=== PATIENT | female | born 1935 | race Caucasian/White ===

== ENCOUNTER 2017-10-05 15:11 | Emergency (ER) | payer MEDICARE, MEDICAID ==
[2017-10-05 16:52] LABS: BASOPHILS 0.3 % (0-2); EOSINOPHILS 5.5 % (0-7); HEMATOCRIT 36.5 % (36.0-48.0); HEMOGLOBIN 12.3 g/dL (12-16); IMMATURE GRANULOCYTES 0.4 % (0-5); LYMPHOCYTES 29.6 % (15-50); MCH 28.1 pg (26.0-34.0); MCHC 33.7 g/dL (31.0-37.0); MCV 83.3 fL (80.0-100.0); MEAN PLATELET VOLUME 9.3 fL (7.4-10.4); NEUTROPHILS 50.2 % (40-80); PLATELET COUNT 287 10x3/uL (130-400); RBC 4.38 10x6/uL (4.00-5.40); RDW 13.5 % (11.5-14.5); WBC 7.9 10x3/uL (4.8-10.8)
[2017-10-05 17:07] LABS: ALBUMIN 3.1 g/dL (3.4-5.0); ANION GAP 14.6 mmol/L (8-16); BILIRUBIN - TOTAL 0.46 mg/dL (0.2-1.3); CALCIUM 9.5 mg/dL (8.5-10.1); CARBON DIOXIDE 27.3 mmol/L (21.0-32.0); CREATININE - SERUM 1.7 mg/dL (0.6-1.3); POTASSIUM - SERUM 3.9 mmol/L (3.5-5.1); PROTEIN - SERUM 8.1 g/dL (6.4-8.2)
== END 2017-10-05 18:45 | disposition home or self-care (01) ==
LOC: D.ER 15:11
PROVIDERS: Family Medicine
DX: E11.65 Type 2 diabetes mellitus with hyperglycemia (principal); Z79.4 Long term (current) use of insulin; I50.9 Heart failure, unspecified; I10 Essential (primary) hypertension; E03.9 Hypothyroidism, unspecified; K21.9 Gastro-esophageal reflux disease without esophagitis

== ENCOUNTER 2018-04-07 08:35 | Inpatient (IN) | payer MEDICARE, MEDICAID ==
[~2018-04-07] VITALS: Ht 170.2 cm; Wt 104.3 kg
--- NOTE | ~2018-04-07 | EC ---
PATIENT:INGRIS CONTRERAS DATE OF SERVICE: 04/07/18 SEX: F MEDICAL RECORD: [id number] DATE OF : 33 LOCATION:[facility] AGE OF PATIENT: 83 ADMISSION DATE: 04/07/18 REFERRING PHYSICIAN: INTERPRETING PHYSICIAN: KENTRELL MI MD ECHOCARDIOGRAM REPORT ECHO CHARGES 4 ECHO COMPLETE Date: 04/08/18 CLINICAL DIAGNOSIS: CHF ECHOCARDIOGRAPHIC MEASUREMENTS (adult normal given) AC root (d.<3.7cm) 2.8 cm LV Septum d (<1.2 cm> 1.8 cm Valve Excursion 1.5 cm LV Septum (systole) 2.0 cm Left Atria (s.<4.0cm> 3.2 cm LVPW d(<1.2cm) 1.7 cm RV (d.<2.3cm) 4.6 cm LVPW (sytole) 2.1 cm LV diastole(<5.6CM) 4.8 cm MV E-F(>70mm/sec) cm LV systole 3.2 cm LVOT Diameter 1.7 cm MV exc.(>10mm) 1.9 cm Est.ejection fraction (50-75%) % DOPPLER: LVIT cm/sec A 111 cm/sec E 93.0 cm/sec LA cm/sec RVSP 35 mmHg LVOT 110 cm/sec AOP1/2T m/s Asc. Ao 189 cm/sec RVOT 114 cm/sec RA cm/sec PA 134 cm/sec AV Gradient Peak 14.26mmHg AV Mean 6.51 mmHg AV Area 1.4 cm MV Gradient Peak 5.20 mmHg MV Mean 2.49 mmHg MV Area cm COMMENTS: Corporate Travel Coordinator: Miles MOY Clam Grader: 3 Dr. Abdi TAPE# PACS Pericardial Effusion N DATE OF SERVICE: 04/08/2018 ECHOCARDIOGRAM FINDINGS: 1. Left ventricular chamber size is within normal limits. Left ventricular systolic function is normal. Overall ejection fraction estimated at 60%. 2. Left atrium, right atrium, and right ventricle chamber sizes are within normal limits. 3. Valvular structures have normal structure and motion. ECHOCARDIOGRAM REPORT [id number] INGRIS CONTRERAS 4. Doppler interrogation only reveals mild tricuspid regurgitation, no other valvular insufficiency or stenosis. Pulmonary systolic pressure is estimated 35 mmHg. 5. No evidence of pericardial effusion or left ventricular thrombus. TRANSINT:[id number] Voice Confirmation ID: [id number] DOCUMENT ID: [id number] KENTRELL MI MD at 1950 CC: [id number] DICTATION DATE: 04/08/18 1107 MATERIAL HANDLER FLOORPERSON: 04/08/18 1119 ADM IN [facility] [address] [place] [address]
[2018-04-07] MEDS ORDERED: BP MED (08:41)
[2018-04-07] MEDS ORDERED: GLUCOPHAGE500 MG PO (08:41)
[2018-04-07] MEDS ORDERED: HUMULIN R100 U/ML SC (08:41)
[2018-04-07] MEDS ORDERED: [UNRECOGNIZED DRUG - REMARK] (08:42)
[2018-04-07] MEDS ORDERED: [UNRECOGNIZED DRUG - REMARK] (08:42)
[2018-04-07 10:24] LABS: BASOPHILS 0.2 % (0-2); EOSINOPHILS 2.6 % (0-7); HEMATOCRIT 35.3 % (36.0-48.0); HEMOGLOBIN 11.9 g/dL (12-16); IMMATURE GRANULOCYTES 0.7 % (0-5); LYMPHOCYTES 14.5 % (15-50); MCH 27.7 pg (26.0-34.0); MCHC 33.7 g/dL (31.0-37.0); MCV 82.1 fL (80.0-100.0); MEAN PLATELET VOLUME 8.9 fL (7.4-10.4); MONOCYTES 8.6 % (2-11); NEUTROPHILS 73.4 % (40-80); PLATELET COUNT 256 10x3/uL (130-400); RDW 13.9 % (11.5-14.5); WBC 11.9 10x3/uL (4.8-10.8)
[2018-04-07 10:31] LABS: APTT 22.6 SECONDS (22.8-39.4)
[2018-04-07 10:32] LABS: INR 1.01 (0.85-1.17); PROTIME 12.9 SECONDS (11.6-15.0)
[2018-04-07 10:37] LABS: ALBUMIN 2.7 g/dL (3.4-5.0); ANION GAP 11.2 mmol/L (8-16); BILIRUBIN - TOTAL 0.39 mg/dL (0.2-1.3); CALCIUM 8.4 mg/dL (8.5-10.1); CARBON DIOXIDE 28.6 mmol/L (21.0-32.0); CREATININE - SERUM 1.7 mg/dL (0.6-1.3); POTASSIUM - SERUM 3.8 mmol/L (3.5-5.1); PROTEIN - SERUM 7.4 g/dL (6.4-8.2)
[2018-04-07 13:59] LABS: % SATURATION 19 % (15-55); IRON 54 ug/dl (35-150); TOTAL IRON BIND CAPACITY 271 ug/dl (260-445); UNSAT IRON BIND CAPACITY 217 ug/dl (150-375)
[2018-04-07 14:12] LABS: FERRITIN 110 ng/mL (3-244); PRO BNP 488 pg/mL (0-450)
[2018-04-07 14:18] VITALS: BP 176/66
[2018-04-07 14:36] VITALS: BP 176/66; BMI 36.1
[2018-04-07 14:49] LABS: BASOPHILS 0.1 % (0-2); HEMATOCRIT 34.6 % (36.0-48.0); HEMOGLOBIN 11.3 g/dL (12-16); IMMATURE GRANULOCYTES 0.8 % (0-5); LYMPHOCYTES 19.1 % (15-50); MCH 27.3 pg (26.0-34.0); MCHC 32.7 g/dL (31.0-37.0); MCV 83.6 fL (80.0-100.0); MEAN PLATELET VOLUME 8.9 fL (7.4-10.4); MONOCYTES 11.8 % (2-11); NEUTROPHILS 66.2 % (40-80); PLATELET COUNT 248 10x3/uL (130-400); RBC 4.14 10x6/uL (4.00-5.40); RDW 14.1 % (11.5-14.5); WBC 10.5 10x3/uL (4.8-10.8)
[2018-04-07 15:01] LABS: ANION GAP 10.2 mmol/L (8-16); CARBON DIOXIDE 27.5 mmol/L (21.0-32.0); CREATININE - SERUM 1.6 mg/dL (0.6-1.3); POTASSIUM - SERUM 3.7 mmol/L (3.5-5.1)
[2018-04-07] MEDS ORDERED: JANUVIA50 MG PO (18:15)
[2018-04-07] MEDS ORDERED: SYNTHROID100 MCG PO (18:16)
[2018-04-07] MEDS ORDERED: NEURONTIN600 MG PO (18:16)
[2018-04-07] MEDS ORDERED: COREG6.25 MG PO (18:17)
[2018-04-07] MEDS ORDERED: FUROSEMIDE20 MG PO (18:19)
[2018-04-07] MEDS ORDERED: ZOCOR20 MG PO (18:19)
[2018-04-07] MEDS ORDERED: LEVEMIR100 U/M1 SQ ×2 (18:21→18:22)
[2018-04-07] MEDS ORDERED: FLUTICASONE PRO16 GM NASAL (18:23)
[2018-04-07] MEDS ORDERED: SPIRIVA18 MCG INH (18:27)
[2018-04-07 18:34] VITALS: BP 154/80
[2018-04-07 20:00] VITALS: BP 178/47
[2018-04-08 04:08] VITALS: BP 163/40
[2018-04-08 05:06] LABS: BASOPHILS 0.1 % (0-2); EOSINOPHILS 1.1 % (0-7); HEMATOCRIT 32.4 % (36.0-48.0); HEMOGLOBIN 10.7 g/dL (12-16); IMMATURE GRANULOCYTES 0.5 % (0-5); LYMPHOCYTES 15.5 % (15-50); MCH 27.3 pg (26.0-34.0); MCV 82.7 fL (80.0-100.0); MONOCYTES 12.9 % (2-11); NEUTROPHILS 69.9 % (40-80); PLATELET COUNT 250 10x3/uL (130-400); RBC 3.92 10x6/uL (4.00-5.40); RDW 14.1 % (11.5-14.5)
[2018-04-08 05:26] LABS: ANION GAP 11.8 mmol/L (8-16); CALCIUM 7.7 mg/dL (8.5-10.1); CARBON DIOXIDE 26.4 mmol/L (21.0-32.0); CREATININE - SERUM 1.6 mg/dL (0.6-1.3); POTASSIUM - SERUM 4.2 mmol/L (3.5-5.1)
[2018-04-08 09:49] VITALS: BP 106/80
[2018-04-08 12:45] VITALS: BP 160/72
[2018-04-08 16:40] VITALS: BP 171/80
[2018-04-08 20:35] VITALS: BP 164/68
[2018-04-09 03:43] VITALS: BP 169/69
[2018-04-09 07:49] LABS: BASOPHILS 0.1 % (0-2); EOSINOPHILS 0.5 % (0-7); HEMATOCRIT 31.6 % (36.0-48.0); HEMOGLOBIN 10.4 g/dL (12-16); IMMATURE GRANULOCYTES 0.5 % (0-5); LYMPHOCYTES 11.8 % (15-50); MCH 27.2 pg (26.0-34.0); MCHC 32.9 g/dL (31.0-37.0); MCV 82.7 fL (80.0-100.0); MEAN PLATELET VOLUME 9.3 fL (7.4-10.4); MONOCYTES 12.4 % (2-11); NEUTROPHILS 74.7 % (40-80); PLATELET COUNT 242 10x3/uL (130-400); RBC 3.82 10x6/uL (4.00-5.40); RDW 13.9 % (11.5-14.5); WBC 9.6 10x3/uL (4.8-10.8)
[2018-04-09 08:18] LABS: FOLATE (FOLIC ACID) - SERUM 10.5 ng/mL (>3.0)
[2018-04-09 08:22] LABS: ANION GAP 10.7 mmol/L (8-16); CALCIUM 7.8 mg/dL (8.5-10.1); CARBON DIOXIDE 25.5 mmol/L (21.0-32.0); CREATININE - SERUM 1.6 mg/dL (0.6-1.3); POTASSIUM - SERUM 4.2 mmol/L (3.5-5.1)
[2018-04-09 08:50] VITALS: BP 160/49
[2018-04-09 12:51] VITALS: BP 175/59
[2018-04-09 17:36] VITALS: BP 156/79
[2018-04-09 20:00] VITALS: BP 109/47
[2018-04-10 04:08] VITALS: BP 123/60
[2018-04-10 06:17] LABS: ANION GAP 8.4 mmol/L (8-16); CARBON DIOXIDE 26.7 mmol/L (21.0-32.0); CREATININE - SERUM 1.6 mg/dL (0.6-1.3); POTASSIUM - SERUM 4.1 mmol/L (3.5-5.1)
[2018-04-10 06:56] LABS: BASOPHILS 0.1 % (0-2); EOSINOPHILS 2.5 % (0-7); HEMATOCRIT 28.4 % (36.0-48.0); HEMOGLOBIN 9.5 g/dL (12-16); IMMATURE GRANULOCYTES 0.5 % (0-5); LYMPHOCYTES 17.6 % (15-50); MCH 27.6 pg (26.0-34.0); MCHC 33.5 g/dL (31.0-37.0); MCV 82.6 fL (80.0-100.0); MEAN PLATELET VOLUME 9.3 fL (7.4-10.4); MONOCYTES 14.3 % (2-11); PLATELET COUNT 241 10x3/uL (130-400); RBC 3.44 10x6/uL (4.00-5.40); WBC 7.6 10x3/uL (4.8-10.8)
[2018-04-10 09:03] VITALS: BP 172/71
[2018-04-10 13:16] VITALS: BP 123/61
[2018-04-10 15:14] VITALS: Ht 170.2 cm; Wt 104.3 kg
[2018-04-10 16:42] VITALS: BP 146/56; BP 96/74
[2018-04-10 19:59] VITALS: BP 141/58
[2018-04-11 04:00] VITALS: BP 144/60
[2018-04-11 06:03] LABS: HEMATOCRIT 30.1 % (36.0-48.0); HEMOGLOBIN 10.3 g/dL (12-16); LYMPHOCYTES 20.9 % (15-50); MCH 27.8 pg (26.0-34.0); MCHC 34.2 g/dL (31.0-37.0); MCV 81.1 fL (80.0-100.0); MEAN PLATELET VOLUME 8.8 fL (7.4-10.4); NEUTROPHILS 65.6 % (40-80); PLATELET COUNT 264 10x3/uL (130-400); RBC 3.71 10x6/uL (4.00-5.40); RDW 13.5 % (11.5-14.5); WBC 6.9 10x3/uL (4.8-10.8)
[2018-04-11 06:09] LABS: ANION GAP 10.7 mmol/L (8-16); CALCIUM 8.1 mg/dL (8.5-10.1); CARBON DIOXIDE 27.5 mmol/L (21.0-32.0); POTASSIUM - SERUM 4.2 mmol/L (3.5-5.1)
[2018-04-11 08:34] VITALS: BP 148/57
[2018-04-11 13:01] VITALS: BP 128/56
[2018-04-11 16:40] VITALS: BP 141/40
[2018-04-11 20:00] VITALS: BP 110/65
[2018-04-12] VITALS (7 sets, daily range): BP systolic 122–170; BP diastolic 49–81
[2018-04-12 05:28] LABS: BASOPHILS 0.3 % (0-2); EOSINOPHILS 5.1 % (0-7); HEMATOCRIT 30.8 % (36.0-48.0); HEMOGLOBIN 10.3 g/dL (12-16); IMMATURE GRANULOCYTES 0.7 % (0-5); LYMPHOCYTES 21.6 % (15-50); MCH 27.4 pg (26.0-34.0); MCHC 33.4 g/dL (31.0-37.0); MCV 81.9 fL (80.0-100.0); MEAN PLATELET VOLUME 9.2 fL (7.4-10.4); MONOCYTES 14.3 % (2-11); PLATELET COUNT 248 10x3/uL (130-400); RBC 3.76 10x6/uL (4.00-5.40); RDW 13.9 % (11.5-14.5); WBC 7.5 10x3/uL (4.8-10.8)
[2018-04-12 05:51] LABS: ANION GAP 12.1 mmol/L (8-16); CALCIUM 8.1 mg/dL (8.5-10.1); CARBON DIOXIDE 25.1 mmol/L (21.0-32.0); POTASSIUM - SERUM 4.2 mmol/L (3.5-5.1)
[2018-04-13 04:00] VITALS: BP 153/55
[2018-04-13 06:24] LABS: BASOPHILS 0.3 % (0-2); EOSINOPHILS 5.6 % (0-7); HEMATOCRIT 30.1 % (36.0-48.0); HEMOGLOBIN 10.2 g/dL (12-16); IMMATURE GRANULOCYTES 0.6 % (0-5); MCH 27.6 pg (26.0-34.0); MCHC 33.9 g/dL (31.0-37.0); MCV 81.4 fL (80.0-100.0); MEAN PLATELET VOLUME 9.2 fL (7.4-10.4); NEUTROPHILS 53.5 % (40-80); PLATELET COUNT 292 10x3/uL (130-400); RDW 13.8 % (11.5-14.5); WBC 6.6 10x3/uL (4.8-10.8)
[2018-04-13 06:56] LABS: ANION GAP 11.5 mmol/L (8-16); BILIRUBIN - TOTAL 0.28 mg/dL (0.2-1.3); POTASSIUM - SERUM 4.5 mmol/L (3.5-5.1)
[2018-04-13 10:10] VITALS: BP 149/49
[2018-04-13 10:18] VITALS: BP 149/49
[2018-04-13 15:04] VITALS: BP 137/54
[2018-04-13 20:23] VITALS: BP 131/42
[2018-04-14 04:18] VITALS: BP 132/56
[2018-04-14 05:35] LABS: BASOPHILS 0.4 % (0-2); EOSINOPHILS 6.6 % (0-7); HEMATOCRIT 29.6 % (36.0-48.0); HEMOGLOBIN 9.8 g/dL (12-16); IMMATURE GRANULOCYTES 0.9 % (0-5); LYMPHOCYTES 28.5 % (15-50); MCH 27.1 pg (26.0-34.0); MCHC 33.1 g/dL (31.0-37.0); MCV 81.8 fL (80.0-100.0); MONOCYTES 11.9 % (2-11); NEUTROPHILS 51.7 % (40-80); PLATELET COUNT 321 10x3/uL (130-400); RBC 3.62 10x6/uL (4.00-5.40); RDW 13.8 % (11.5-14.5); WBC 7.4 10x3/uL (4.8-10.8)
[2018-04-14 05:56] LABS: ALBUMIN 2.1 g/dL (3.4-5.0); ANION GAP 11.9 mmol/L (8-16); BILIRUBIN - TOTAL 0.27 mg/dL (0.2-1.3); CALCIUM 8.2 mg/dL (8.5-10.1); CARBON DIOXIDE 25.4 mmol/L (21.0-32.0); POTASSIUM - SERUM 4.3 mmol/L (3.5-5.1); PROTEIN - SERUM 6.7 g/dL (6.4-8.2)
[2018-04-14 08:20] VITALS: BP 151/79
[2018-04-14] MEDS ORDERED: BREO ELLIPTA 11 EACH INH (11:04)
[2018-04-14 11:53] VITALS: BP 127/56
== END 2018-04-14 18:32 | DRG 493 ==
LOC: D.ER 08:35 → D.MS 11:08 → D.SDCHOLD 11:08 → D.MS 13:17 → D.SDCHOLD 16:41 → D.MS 16:45
PROVIDERS: Emergency Medicine; Family Medicine; Internal Medicine Nephrology; Orthopaedic Surgery
PROC: 0QSG04Z Reposition Right Tibia with Internal Fixation Device, Open Approach (ICD-10-PCS; 2018-04-07)
PROC: 0QSJ04Z Reposition Right Fibula with Internal Fixation Device, Open Approach (ICD-10-PCS; principal; 2018-04-07 11:41)
DX: S82.841A Displaced bimalleolar fracture of right lower leg, initial encounter for closed fracture (principal); N17.9 Acute kidney failure, unspecified; W19.XXXA Unspecified fall, initial encounter; J44.9 Chronic obstructive pulmonary disease, unspecified; I12.9 Hypertensive chronic kidney disease with stage 1 through stage 4 chronic kidney disease, or unspecified chronic kidney disease; E11.22 Type 2 diabetes mellitus with diabetic chronic kidney disease; N18.9 Chronic kidney disease, unspecified; M35.3 Polymyalgia rheumatica; E78.5 Hyperlipidemia, unspecified; D64.9 Anemia, unspecified

== ENCOUNTER → 2019-11-26 12:40 | Outpatient (CLI) | payer MEDICARE, MEDICAID ==
[2018-04-10 15:14] VITALS: BMI 36.0
[~2019-11-26 12:40] MED LIST: BP MED; BREO ELLIPTA 11 EACH INH; COREG6.25 MG PO; FLUTICASONE PRO16 GM NASAL; FUROSEMIDE20 MG PO; GLUCOPHAGE500 MG PO; HUMULIN R100 U/ML SC; JANUVIA50 MG PO; LEVEMIR100 U/M1 SQ; NEURONTIN600 MG PO; SPIRIVA18 MCG INH; SYNTHROID100 MCG PO; ZOCOR20 MG PO; [UNRECOGNIZED DRUG - REMARK]; [UNRECOGNIZED DRUG - REMARK]
[2019-11-26 17:35] LABS: BACTERIA FEW /hpf (NEGATIVE); BILIRUBIN NEGATIVE (NEGATIVE); EPITHELIAL CELLS NSEEN /hpf (0-5); GLUCOSE 100 mg/dL (NEGATIVE); KETONE NEGATIVE (NEGATIVE); NITRITE NEGATIVE (NEGATIVE); RED CELLS - URINE 0-5 /hpf (0-5); SPECIFIC GRAVITY 1.015 (1.005-1.020); UROBILINOGEN NORMAL (NORMAL); WHITE CELLS - URINE 0-5 /hpf (NEGATIVE)
== END | disposition home or self-care (01) ==
LOC: D.LABREF 12:40
PROVIDERS: ATTEND Family Medicine
DX: R41.0 Disorientation, unspecified (principal); E11.65 Type 2 diabetes mellitus with hyperglycemia; N18.4 Chronic kidney disease, stage 4 (severe); R35.0 Frequency of micturition

== ENCOUNTER → 2020-04-25 18:50 | Outpatient (CLI) | payer MEDICARE, MEDICAID ==
[2018-04-10 15:14] VITALS: BMI 36.0
== END | disposition home or self-care (01) ==
LOC: D.LAB 18:50
PROVIDERS: ATTEND Family Medicine
DX: E11.65 Type 2 diabetes mellitus with hyperglycemia (principal); I11.0 Hypertensive heart disease with heart failure; I50.9 Heart failure, unspecified; N18.4 Chronic kidney disease, stage 4 (severe)

== ENCOUNTER → 2020-04-25 19:58 | Outpatient (CLI) | payer MEDICARE, MEDICAID ==
[2018-04-10 15:14] VITALS: BMI 36.0
[2020-04-25 20:45] LABS: BASOPHILS 0.4 % (0-2); EOSINOPHILS 5.3 % (0-7); HEMATOCRIT 36.7 % (36.0-48.0); HEMOGLOBIN 11.9 g/dL (12-16); IMMATURE GRANULOCYTES 0.4 % (0-5); MCH 27.7 pg (26.0-34.0); MCHC 32.4 g/dL (31.0-37.0); MCV 85.5 fL (80.0-100.0); MEAN PLATELET VOLUME 9.4 fL (7.4-10.4); MONOCYTES 12.7 % (2-11); NEUTROPHILS 55.2 % (40-80); PLATELET COUNT 295 10x3/uL (130-400); RBC 4.29 10x6/uL (4.00-5.40); RDW 14.3 % (11.5-14.5); WBC 7.9 10x3/uL (4.8-10.8)
[2020-04-25 21:10] LABS: ALBUMIN 2.7 g/dL (3.4-5.0); BILIRUBIN - TOTAL 0.23 mg/dL (0.2-1.3); CALCIUM 8.4 mg/dL (8.5-10.1); CARBON DIOXIDE 23.5 mmol/L (21.0-32.0); CREATININE - SERUM 1.9 mg/dL (0.6-1.3); POTASSIUM - SERUM 4.5 mmol/L (3.5-5.1); PROTEIN - SERUM 7.3 g/dL (6.4-8.2)
[2020-04-25 22:39] LABS: BILIRUBIN NEGATIVE (NEGATIVE); KETONE NEGATIVE (NEGATIVE); NITRITE NEGATIVE (NEGATIVE); UROBILINOGEN NORMAL mg/dL (< 2)
[2020-04-25 22:40] LABS: EPITHELIAL CELLS 0-5 /hpf (0-5)
[2020-04-25 22:41] LABS: BACTERIA FEW HPF (NONE SEEN)
== END | disposition home or self-care (01) ==
LOC: D.LABREF 19:58
PROVIDERS: ATTEND Family Medicine
DX: E11.65 Type 2 diabetes mellitus with hyperglycemia (principal); I50.9 Heart failure, unspecified; I11.0 Hypertensive heart disease with heart failure; N18.4 Chronic kidney disease, stage 4 (severe)

== ENCOUNTER 2020-10-25 17:54 | Inpatient (IN) | payer MEDICARE, MEDICAID ==
[~2020-10-25] VITALS: Ht 170.2 cm; Wt 113.2 kg
[2020-10-25] MEDS ORDERED: NORVASC5 MG PO (18:03)
[2020-10-25] MEDS ORDERED: ALDACTONE25 MG (18:03)
[2020-10-25] MEDS ORDERED: K-DUR20 MEQ PO (18:03)
[2020-10-25] MEDS ORDERED: HYDRALAZINE HCL25 MG (18:04)
[2020-10-25] MEDS ORDERED: COLACE100 MG (18:04)
[2020-10-25] MEDS ORDERED: PROTONIX40 MG PO (18:04)
[2020-10-25 19:00] LABS: BASOPHILS 0.4 % (0-2); EOSINOPHILS 10.2 % (0-7); HEMATOCRIT 34.3 % (36.0-48.0); HEMOGLOBIN 10.8 g/dL (12-16); IMMATURE GRANULOCYTES 0.7 % (0-5); LYMPHOCYTE ABS# 2.12 10x3/uL (1.18-3.74); LYMPHOCYTES 30.5 % (15-50); MCH 26.2 pg (26.0-34.0); MCHC 31.5 g/dL (31.0-37.0); MCV 83.1 fL (80.0-100.0); MEAN PLATELET VOLUME 8.7 fL (7.4-10.4); MONOCYTES 18.7 % (2-11); NEUTROPHIL ABS# 2.74 10x3/uL (1.56-6.13); NEUTROPHILS 39.5 % (40-80); PLATELET COUNT 244 10x3/uL (130-400); RBC 4.13 10x6/uL (4.00-5.40); RDW 16.1 % (11.5-14.5)
[2020-10-25 19:06] LABS: CALC OSMOLALITY 281 mosm/kg (275-300); CALCIUM 8.8 mg/dL (8.5-10.1); CARBON DIOXIDE 23.7 mmol/L (21.0-32.0); CHLORIDE - SERUM 104 mmol/L (98-107); CREATININE - SERUM 2.2 mg/dL (0.6-1.3); POTASSIUM - SERUM 4.8 mmol/L (3.5-5.1); SODIUM 137 mmol/L (136-145); UREA NITROGEN 27 mg/dL (7-18); eGFR NON AFRICAN AMERICAN 22 mL/min (90-120)
[2020-10-25 19:08] LABS: GLUCOSE 155 mg/dL (74-106)
[2020-10-25 19:12] LABS: INR 1.13 (0.85-1.17); PROTIME 13.5 SECONDS (11.6-15.0)
[2020-10-25 19:19] LABS: ALBUMIN 2.7 g/dL (3.4-5.0); ALKALINE PHOSPHATASE 67 U/L (30-120); ALT (SGPT) 15 U/L (10-68); BILIRUBIN - TOTAL 0.25 mg/dL (0.2-1.3); PRO BNP 1016 pg/mL (0-450); PROTEIN - SERUM 7.4 g/dL (6.4-8.2)
[2020-10-25 19:28] LABS: TROPONIN-I < 0.017 ng/mL (0.000-0.060)
[2020-10-25 19:31] VITALS: BP 167/64
[2020-10-25 19:58] LABS: BILIRUBIN NEGATIVE (NEGATIVE); KETONE NEGATIVE (NEGATIVE); NITRITE NEGATIVE (NEGATIVE); UROBILINOGEN NORMAL mg/dL (< 2)
[2020-10-25 20:00] LABS: BACTERIA MANY HPF (NONE SEEN); SQUAMOUS EPITHELIAL 0-5 HPF (0-4)
[2020-10-25 20:34] VITALS: BP 158/72
--- NOTE | 2020-10-25 21:00 | NUR ---
PT ASSISTED WITH BEDPAN. LARGE LOOSE BROWN BM. HIRA CARE PROVIDED, BED LINEN CHANGED AND PUREWICK PLACED ON PT. PT TOLERATED WELL. CALL LIGHT IN REACH.
[2020-10-25 21:30] VITALS: BP 147/82
--- NOTE | 2020-10-25 23:01 | NUR ---
PT FROM ER VIA STRETCHER, PT TO BED, AAO X 3, RESP EVEN AND UNLABORED,NO DISTRESS NOTED, CL IN REACH, SR UP X 2.
[2020-10-26 01:45] VITALS: BP 165/66
[2020-10-26 01:46] VITALS: BP 157/68
[2020-10-26 02:52] LABS: BASOPHILS 0.2 % (0-2); EOSINOPHILS 1.3 % (0-7); HEMATOCRIT 36.1 % (36.0-48.0); HEMOGLOBIN 11.5 g/dL (12-16); IMMATURE GRANULOCYTES 0.5 % (0-5); LYMPHOCYTE ABS# 1.21 10x3/uL (1.18-3.74); LYMPHOCYTES 12.9 % (15-50); MCH 26.5 pg (26.0-34.0); MCHC 31.9 g/dL (31.0-37.0); MCV 83.2 fL (80.0-100.0); MEAN PLATELET VOLUME 8.5 fL (7.4-10.4); MONOCYTES 4.3 % (2-11); NEUTROPHIL ABS# 7.58 10x3/uL (1.56-6.13); NEUTROPHILS 80.8 % (40-80); PLATELET COUNT 273 10x3/uL (130-400); RBC 4.34 10x6/uL (4.00-5.40); RDW 15.8 % (11.5-14.5)
[2020-10-26 02:56] LABS: WBC 9.4 10x3/uL (4.8-10.8)
[2020-10-26 03:10] LABS: % SATURATION 21 % (15-55); IRON 46 ug/dl (35-150); TOTAL IRON BIND CAPACITY 210 ug/dl (260-445); UNSAT IRON BIND CAPACITY 164 ug/dl (150-375)
[2020-10-26 03:40] LABS: ALBUMIN 2.5 g/dL (3.4-5.0); ALKALINE PHOSPHATASE 68 U/L (30-120); ALT (SGPT) 13 U/L (10-68); BILIRUBIN - TOTAL 0.29 mg/dL (0.2-1.3); CALC OSMOLALITY 283 mosm/kg (275-300); CALCIUM 8.6 mg/dL (8.5-10.1); CARBON DIOXIDE 25.5 mmol/L (21.0-32.0); CHLORIDE - SERUM 105 mmol/L (98-107); CKMB 0.6 U/L (0.0-3.6); CREATINE KINASE 36 UL (21-215); CREATININE - SERUM 2.1 mg/dL (0.6-1.3); FERRITIN 141 ng/mL (3-244); GLUCOSE 167 mg/dL (74-106); MAGNESIUM - SERUM 1.8 mg/dL (1.8-2.4); POTASSIUM - SERUM 4.9 mmol/L (3.5-5.1); PROTEIN - SERUM 7.4 g/dL (6.4-8.2); SODIUM 138 mmol/L (136-145); UREA NITROGEN 23 mg/dL (7-18); eGFR NON AFRICAN AMERICAN 24 mL/min (90-120)
[2020-10-26 03:41] LABS: TROPONIN-I < 0.017 ng/mL (0.000-0.060)
[2020-10-26 05:11] VITALS: BMI 39.1
[2020-10-26 05:40] VITALS: BP 115/74
--- NOTE | 2020-10-26 07:21 | NUR ---
SPOKE WITH PT SON AT THIS TIME REGARDING PT TREATMENT PLAN AND CONDITION.
[2020-10-26 07:54] VITALS: BP 155/63
[2020-10-26 08:06] LABS: CKMB 1.2 U/L (0.0-3.6); CREATINE KINASE 36 UL (21-215); TROPONIN-I < 0.017 ng/mL (0.000-0.060)
--- NOTE | 2020-10-26 08:31 | NUR ---
PT GIVEN AM MEDS PER EMAR. PT ASSISTED TO REPOSITION IN BED FOR BREAKFAST. RR EVEN NON LABORED. PRODUCTIVE COUGH NOTED. PT AAOX3. PLEASANT. PAIN STATED TO BACK. PT DENIES WANTING PRN PAIN MEDICATION AT THIS TIME. NO NEEDS VOICED. CLWR.
--- NOTE | 2020-10-26 09:47 | NUR ---
SKIN BREAKDOWN NOTED TO BUTTOCKS. BARRIER CREAM APPLIED.
[2020-10-26 10:04] VITALS: BMI 39.1
[2020-10-26 10:40] VITALS: Ht 170.2 cm; Wt 113.2 kg
--- NOTE | 2020-10-26 11:10 | NUR ---
MEDS GIVEN. PT ASSISTED WITH TV. PHONE SARAY FIXED IN ROOM PER TECH. NO NEEDS VOICED. CLWR .
[2020-10-26 11:32] VITALS: BP 166/66
[2020-10-26 14:43] LABS: CKMB 0.7 U/L (0.0-3.6); CREATINE KINASE 37 UL (21-215)
[2020-10-26 14:46] LABS: TROPONIN-I < 0.017 ng/mL (0.000-0.060)
[2020-10-26 15:59] VITALS: BP 169/58
--- NOTE | 2020-10-26 20:18 | NUR ---
PT A/O X4. PT VOMITING UNCONTROLABLY. PRN ZOFRAN GIVEN. RR E/U. VSS. TELE-88. BED LOW CALL LIGHT WITHIN REACH. WILL CONTINUE TO MONITOR.
--- NOTE | 2020-10-26 20:20 | NUR ---
PT STOPPED VOMITING AT THIS TIME.
--- NOTE | 2020-10-26 21:10 | NUR ---
SWALLOW STUDY ORDERED PER SHAILA ESCOBAR.
[2020-10-27 01:08] VITALS: BP 133/74
--- NOTE | 2020-10-27 02:25 | NUR ---
I have reviewed this patient and I concur with the Shift Assessment completed by the Licensed Practical Nurse today this shift.
[2020-10-27 05:33] VITALS: BP 144/72
[2020-10-27 05:47] LABS: BASOPHILS 0.3 % (0-2); EOSINOPHILS 0 % (0-7); HEMATOCRIT 32.1 % (36.0-48.0); HEMOGLOBIN 10.2 g/dL (12-16); IMMATURE GRANULOCYTES 0.7 % (0-5); LYMPHOCYTES 14.7 % (15-50); MCH 26.3 pg (26.0-34.0); MCHC 31.8 g/dL (31.0-37.0); MCV 82.7 fL (80.0-100.0); MEAN PLATELET VOLUME 9.1 fL (7.4-10.4); MONOCYTES 13.1 % (2-11); NEUTROPHIL ABS# 5.32 10x3/uL (1.56-6.13); NEUTROPHILS 71.2 % (40-80); PLATELET COUNT 284 10x3/uL (130-400); RBC 3.88 10x6/uL (4.00-5.40); RDW 15.8 % (11.5-14.5); WBC 7.5 10x3/uL (4.8-10.8)
--- NOTE | 2020-10-27 05:59 | NUR ---
PT RESTING COMFORTABLY AT THIS TIME. RR E/U. VSS. TELE-64. PT HAS BEEN NPO SINCE MIDNIGHT PENDING CARDIOLOGY CONSULT. PT IS SCEDULED STRESS TEST W/ DR. ESPINAL OFFICE THIS AM.
[2020-10-27 06:09] LABS: ALBUMIN 2.3 g/dL (3.4-5.0); ANION GAP 13.1 mmol/L (8-16); BILIRUBIN - TOTAL 0.19 mg/dL (0.2-1.3); CALCIUM 8.4 mg/dL (8.5-10.1); CARBON DIOXIDE 24.7 mmol/L (21.0-32.0); CREATININE - SERUM 2.1 mg/dL (0.6-1.3); MAGNESIUM - SERUM 1.7 mg/dL (1.8-2.4); POTASSIUM - SERUM 4.8 mmol/L (3.5-5.1); PROTEIN - SERUM 6.6 g/dL (6.4-8.2)
--- NOTE | 2020-10-27 07:10 | NUR ---
Lying in bed, awake/alert/oriented x 3, t/r self ad alex with assist, has purewick filter draining clear yellow urine to cdb in ample amt, cath care provided with daily bath and prn, using catheter to keep periarea clean/dry, incont of bowel with use of incont pads ad alex, pericare provided with daily bath and prn, denies pain/other discomfort at this time, call light/phone/water within reach, no s/s of acute distress observed.
[2020-10-27 08:18] VITALS: BP 151/68
[2020-10-27 11:46] VITALS: BP 157/62
[2020-10-27 16:11] VITALS: BP 159/64
[2020-10-27 20:00] VITALS: BP 139/63
--- NOTE | 2020-10-27 22:00 | NUR ---
IV RESITED TO LEFT HAND
--- NOTE | 2020-10-27 23:55 | NUR ---
LINENS AND GOWN CHANGES. BARRIER CREAM APPLIED. LOTION TO BACK AND HIPS APPLIED. NEW PUREWICK APPLIED. PATIENT DENEIS ANY OTHER NEEDS OR CONCERNS.
[2020-10-28 04:00] VITALS: BP 136/59
[2020-10-28 05:35] LABS: BASOPHILS 0.4 % (0-2); EOSINOPHILS 3.9 % (0-7); HEMATOCRIT 33.4 % (36.0-48.0); HEMOGLOBIN 10.5 g/dL (12-16); IMMATURE GRANULOCYTES 0.6 % (0-5); LYMPHOCYTE ABS# 1.58 10x3/uL (1.18-3.74); LYMPHOCYTES 16.6 % (15-50); MCH 26.4 pg (26.0-34.0); MCHC 31.4 g/dL (31.0-37.0); MCV 83.9 fL (80.0-100.0); MEAN PLATELET VOLUME 8.7 fL (7.4-10.4); MONOCYTES 17.3 % (2-11); NEUTROPHIL ABS# 5.82 10x3/uL (1.56-6.13); NEUTROPHILS 61.2 % (40-80); PLATELET COUNT 267 10x3/uL (130-400); RBC 3.98 10x6/uL (4.00-5.40); RDW 15.7 % (11.5-14.5)
[2020-10-28 05:41] LABS: WBC 9.5 10x3/uL (4.8-10.8)
[2020-10-28 05:58] LABS: ALBUMIN 2.4 g/dL (3.4-5.0); ANION GAP 13.2 mmol/L (8-16); BILIRUBIN - TOTAL 0.23 mg/dL (0.2-1.3); CALCIUM 8.3 mg/dL (8.5-10.1); CARBON DIOXIDE 26.2 mmol/L (21.0-32.0); CREATININE - SERUM 1.9 mg/dL (0.6-1.3); MAGNESIUM - SERUM 1.5 mg/dL (1.8-2.4); POTASSIUM - SERUM 4.4 mmol/L (3.5-5.1); PROTEIN - SERUM 6.5 g/dL (6.4-8.2)
[2020-10-28 08:25] VITALS: BP 154/62
--- NOTE | 2020-10-28 10:08 | MORECARE ---
CASE MANAGEMENT DISCHARGE SUMMARY PATIENT: INGRIS CONTRERAS GERSON UNIT: [id number] ADM DATE: 10/25/20 AGE: 85 : 33 SEX: F ROOM/BED: D210 AUTHOR: MARCELDOC PHYSICIAN: REFERRING PHYSICIAN: AGA SALINAS MD DATE OF SERVICE: 10/28/20 Case Management Discharge Planning Summary DCP REVIEW SUMMARY ANTICIPATED D/C DATE: EXPECTED LOS : CASE STATUS: DCP Initiated INITIAL REVIEW: 10/28/2020 INITIAL REVIEWER: Anna Carreon FINAL DISCHARGE DISPOSITION: : FINAL REVIEWER: FINAL REVIEW DATE: LACE: UPDATED BY: [email or web address]: Daly Zamora on 10/26/20 12:25 CT QUESTION: ANSWER Length of Stay (Prior Admit): None DCP Focus Questions & Answers DCP REV -DCP Review Added on: 10/28/20 10:01 am QUESTION: ANSWER DCP Screen High Risk Factors: : Poor social support DCP Evaluation Patient's ability to cope with chronic illness : d. No chronic illness Mental health screen: : No mental health history Would patient like to participate in any Care Coordination programs (if applicable): : Not applicable DCP Re-evaluation Would patient like to participate in any Care Coordination programs (if applicable): : Not applicable PATIENT: INGRIS CONTRERAS ENCOUNTER: [id number] MEDICAL RECORD#: [id number] ADMISSION DATE: 10/25/2020 DISCHARGE DATE: ATTENDING MD: BRAD SALINAS : AGE: 85 MARITAL STATUS: W DC PLAN ID: [id number] FACILITY: [facility] PRINTED ON: 10/28/20 10:08 CT All edits/amendments must be made on the electronic document DICTATION DATE: 10/28/20 100 DATA COLLECTION INTERVIEWER: DM 10/28/20 1008 RPT#: [id number] DC DATE: STATUS: ADM IN [facility] [address] [place] [address] END OF REPORT
--- NOTE | 2020-10-28 10:21 | MORECARE ---
CASE MANAGEMENT DISCHARGE SUMMARY PATIENT: INGRIS CONTRERAS UNIT: [id number] ADM DATE: 10/25/20 AGE: 85 : 33 SEX: F ROOM/BED: D.2103 AUTHOR: RUTH ROD PHYSICIAN: REFERRING PHYSICIAN: AGA SALINAS MD DATE OF SERVICE: 10/28/20 Case Management Discharge Planning Summary DCP REVIEW SUMMARY ANTICIPATED D/C DATE: EXPECTED LOS : CASE STATUS: DCP Initiated INITIAL REVIEW: 10/28/2020 INITIAL REVIEWER: Anna Carreon FINAL DISCHARGE DISPOSITION: : FINAL REVIEWER: FINAL REVIEW DATE: LACE: UPDATED BY: [id number]: Daly Zamora on 10/26/20 12:25 CT QUESTION: ANSWER Length of Stay (Prior Admit): None DCP Focus Questions & Answers DCP REV -DCP Review Added on: 10/28/20 10:01 am QUESTION: ANSWER DCP Screen High Risk Factors: : Poor social support DCP Evaluation Patient's ability to cope with chronic illness : a. Adequate (0-3 ED visits in 6 mos., adequate financial resources, attends scheduled appts.) Mental health screen: : No mental health history Would patient like to participate in any Care Coordination programs (if applicable): : Not applicable Patient gives permission to discuss discharge plans with: (name, relationship and number) : Ariana Tijerina - , states unknown number. Face sheet has [phone] Physical Status: : Compromised skin integrity Physical Status: : Mobility impaired Physical Status: : Partial care dependence Partial Dependence, assistance required for: : Ambulation / Mobility Partial Dependence, assistance required for: : Bathing Partial Dependence, assistance required for: : Dressing Baseline cognitive status: : *Oriented to person, place, situation, time and present Living Arrangements: : Home Alone with Support Living arrangements comments: : States her sister lives next door Facility / Agency name and contact information from Question 3 (if applicable): : Ariana Tijerina - [phone] Medication Management: : Patient states the need for assistance with medication administration Pharmacy name(s): : [facility] Does Patient have transportation to get home and to follow-up medical appointments when discharged from the hospital? : Yes Comments: : States either her grand daughter will take her home or she will need ambulance service Does the patient have electricity at home? : Yes Does the patient have running water in their house? : Yes Equipment in use: : Home Oxygen with Nasal Cannula Equipment in use: : Hospital Bed Equipment in use: : Shower Chair Equipment in use: : Walker - Rollator Psychosocial status: : Elderly handicapped Resources / Services in place: : [facility] agency on aging Resources / Services in place: : Home health Contact information for resources in use: : [facility] Patient's current cognitive status: : *Oriented to person, place, situation, time and present Functional screen assessment: : Unable to manage ADLs without immediate ongoing assistance Functional screen comments: : Refuses rehab Patient with capacity for self-care or can be cared for in same environment as prior to hospitalization? : Yes Does the patient have the ability to pay for or attain post discharge needs / services? : Yes Is there a likelihood that the patient will require additional services to return to the preadmission environment? : Yes Results of this evaluation have been discussed with: : Patient DCP Re-evaluation Would patient like to participate in any Care Coordination programs (if applicable): : Not applicable PATIENT: INGRIS CONTRERAS ENCOUNTER: [id number] MEDICAL RECORD#: [id number] ADMISSION DATE: 10/25/2020 DISCHARGE DATE: ATTENDING MD: BRAD SALINAS : AGE: 85 MARITAL STATUS: W DC PLAN ID: [id number] FACILITY: [facility] PRINTED ON: 10/28/20 10:20 CT All edits/amendments must be made on the electronic document DICTATION DATE: 10/28/20 1020 GEOTHERMAL TECHNICIAN: EMILY 10/28/20 1020 RPT#: [id number] DC DATE: STATUS: ADM IN [facility] [address] [place] [address] END OF REPORT
--- NOTE | 2020-10-28 11:13 | MORECARE ---
CASE MANAGEMENT DISCHARGE SUMMARY PATIENT: INGRIS CONTRERAS UNIT: [id number] ADM DATE: 10/25/20 AGE: 85 : 33 SEX: F ROOM/BED: D.2100 AUTHOR: RUTH ROD PHYSICIAN: REFERRING PHYSICIAN: AGA SALINAS MD DATE OF SERVICE: 10/28/20 Case Management Discharge Planning Summary COMMENTS ENTERED DATE: 10/28/20 10:18 CT COMMENT TYPE: Discharge Planning REVIEWER: Anna Carreon CM met with patient to discuss discharge planning/needs. She states she lives alone. States she has no steps to enter her one level home. States Dr. Peña is her PCP. States her sister lives next door. She is unable to verify her sister's phone number. I informed her that PT recommends that she go to rehab prior to going home for strengthening. She tells me she gets along fine at home and is not going to rehab. I informed her that per notes, she is not walking a safe distance to go home. She states that she is able to get into her chair. States she has 2 aides from [employer] that come MTF from 8am-3PM. I have asked what she does after 3 for assistance and on the days they are not there and she said her sister helps her. She states [facility] health was supposed to come out and start doing therapy. She states she wears oxygen at home prn and unsure what company supplies her. She states if her grand daughter cannot transport her home, she will need ambulance transfer. I continued to encourage rehab, but she absolutely refuses. CM will continue to follow and assist with discharge planning/needs. DCP REVIEW SUMMARY ANTICIPATED D/C DATE: EXPECTED LOS : CASE STATUS: DCP Initiated INITIAL REVIEW: 10/28/2020 INITIAL REVIEWER: Anna Carreon FINAL DISCHARGE DISPOSITION: : FINAL REVIEWER: FINAL REVIEW DATE: STEVEE: UPDATED BY: [id number]: Daly Zamora on 10/26/20 12:25 CT QUESTION: ANSWER Length of Stay (Prior Admit): None DCP Focus Questions & Answers DCP REV -DCP Review Added on: 10/28/20 10:01 am QUESTION: ANSWER DCP Screen High Risk Factors: : Poor social support DCP Evaluation Patient's ability to cope with chronic illness : a. Adequate (0-3 ED visits in 6 mos., adequate financial resources, attends scheduled appts.) Mental health screen: : No mental health history Would patient like to participate in any Care Coordination programs (if applicable): : Not applicable Patient gives permission to discuss discharge plans with: (name, relationship and number) : Ariana Tijerina - , states unknown number. Face sheet has [phone] Physical Status: : Compromised skin integrity Physical Status: : Mobility impaired Physical Status: : Partial care dependence Partial Dependence, assistance required for: : Ambulation / Mobility Partial Dependence, assistance required for: : Bathing Partial Dependence, assistance required for: : Dressing Baseline cognitive status: : *Oriented to person, place, situation, time and present Living Arrangements: : Home Alone with Support Living arrangements comments: : States her sister lives next door Facility / Agency name and contact information from Question 3 (if applicable): : Ariana Tijerina - [phone] Medication Management: : Patient states the need for assistance with medication administration Pharmacy name(s): : [facility] Does Patient have transportation to get home and to follow-up medical appointments when discharged from the hospital? : Yes Comments: : States either her grand daughter will take her home or she will need ambulance service Does the patient have electricity at home? : Yes Does the patient have running water in their house? : Yes Equipment in use: : Home Oxygen with Nasal Cannula Equipment in use: : Hospital Bed Equipment in use: : Shower Chair Equipment in use: : Walker - Rollator Psychosocial status: : Elderly handicapped Resources / Services in place: : [facility] agency on aging Resources / Services in place: : Home health Contact information for resources in use: : [facility] Patient's current cognitive status: : *Oriented to person, place, situation, time and present Functional screen assessment: : Unable to manage ADLs without immediate ongoing assistance Functional screen comments: : Refuses rehab Patient with capacity for self-care or can be cared for in same environment as prior to hospitalization? : Yes Does the patient have the ability to pay for or attain post discharge needs / services? : Yes Is there a likelihood that the patient will require additional services to return to the preadmission environment? : Yes Results of this evaluation have been discussed with: : Patient DCP Re-evaluation Would patient like to participate in any Care Coordination programs (if applicable): : Not applicable PATIENT: INGRIS CONTRERAS ENCOUNTER: [id number] MEDICAL RECORD#: [id number] ADMISSION DATE: 10/25/2020 DISCHARGE DATE: ATTENDING MD: BRAD SALINAS : AGE: 85 MARITAL STATUS: W DC PLAN ID: [id number] FACILITY: [facility] PRINTED ON: 10/28/20 11:13 CT All edits/amendments must be made on the electronic document DICTATION DATE: 10/28/20 111 REPAIRER HELPER: EMILY 10/28/20 1113 RPT#: [id number] DC DATE: STATUS: ADM IN [facility] [address] [place] [address] END OF REPORT
[2020-10-28 11:35] VITALS: BP 168/68
--- NOTE | 2020-10-28 11:44 | NUR ---
PATIENT LYING SEMI FOWLERS AAOX4, RESP EVEN AND NON LABORED, NO S/S OF DISTRESS, MEDICATIONS ADMINISTERED WITH NO COMPLICATIONS, PATIENT IS CHANGED AND BARRIER CREAM APPLIED TO REDDENED BUTTOCKS, NO FURTHER NEEDS AT THIS TIME, ROCIO MACK
--- NOTE | 2020-10-28 12:41 | NUR ---
Nutrition Follow-up: Pt reports that appetite is not good. Had not eaten breakfast yet at time of visit this AM. Denies N/V/C/D, chewing/swallowing difficulties. Agreed to Glucerna with meals. C/o back pain. Diet: Cardiac PO intake: 25% x 3 (10/26) No new wt; last wt: 249.5# (10/26) Labs noted: BUN 29, Cre 1.9, GFR 26, Glu 173, Ca 8.3, Mg 1.5, Alb 2.4 Meds noted: Lasix, Protonix, Humalog, electrolyte protocol -Change to cardiac carb consistent diet. -+Glucerna with meals. -Encourage PO intake and honor food preferences within diet restrictions. -Need new wt. -RD will follow up within 3-4 days if pt still admitted.
[2020-10-28 14:51] VITALS: BP 159/72
--- NOTE | 2020-10-28 18:00 | NUR ---
I have reviewed this patient and I concur with the Shift Assessment completed by the Licensed Practical Nurse today this shift.
--- NOTE | 2020-10-28 19:05 | NUR ---
REPORT RECEIVED, PT CARE ASSUMED. PT LYING IN BED ON BACK, AAOX4, REQUESTING TO BE TURNED TO LEFT SIDE, ASSISTED WITH TURN. DENIES ANY OTHER NEEDS AT THIS TIME. BED LOWEST, SRX2, CALL LIGHT WITHIN REACH. CPOC.
[2020-10-28 21:44] VITALS: BP 145/61
[2020-10-28 21:57] VITALS: BP 145/61
--- NOTE | 2020-10-28 22:13 | NUR ---
PT CONVERTED TO UNCONTROLLED A.FIB, PER TELEMETRY.
--- NOTE | 2020-10-28 22:40 | NUR ---
PT CONVERTED TO NSR, PER TELEMETRY.
[2020-10-29 01:05] VITALS: BP 153/62
[2020-10-29 05:15] LABS: BASOPHILS 0.3 % (0-2); EOSINOPHILS 7.7 % (0-7); IMMATURE GRANULOCYTES 1.3 % (0-5); LYMPHOCYTE ABS# 1.71 10x3/uL (1.18-3.74); MCH 26.3 pg (26.0-34.0); MCHC 31.4 g/dL (31.0-37.0); MCV 83.5 fL (80.0-100.0); MEAN PLATELET VOLUME 8.8 fL (7.4-10.4); MONOCYTES 18.6 % (2-11); NEUTROPHIL ABS# 3.65 10x3/uL (1.56-6.13); NEUTROPHILS 49.1 % (40-80); PLATELET COUNT 256 10x3/uL (130-400); RBC 4.19 10x6/uL (4.00-5.40); RDW 15.7 % (11.5-14.5); WBC 7.4 10x3/uL (4.8-10.8)
[2020-10-29 05:34] LABS: ALBUMIN 2.3 g/dL (3.4-5.0); ANION GAP 11.6 mmol/L (8-16); BILIRUBIN - TOTAL 0.32 mg/dL (0.2-1.3); CALCIUM 8.3 mg/dL (8.5-10.1); CARBON DIOXIDE 27.8 mmol/L (21.0-32.0); CREATININE - SERUM 1.8 mg/dL (0.6-1.3); MAGNESIUM - SERUM 1.4 mg/dL (1.8-2.4); POTASSIUM - SERUM 4.4 mmol/L (3.5-5.1); PROTEIN - SERUM 6.6 g/dL (6.4-8.2)
[2020-10-29 05:36] VITALS: BP 153/62
[2020-10-29 07:48] VITALS: BP 167/69
--- NOTE | 2020-10-29 10:08 | NUR ---
PATIENT LYING SEMI FOWLERS AAOX4, RESP EVEN AND NON LABORED, NO S/S OF DISTRESS, PATIENT UP TO SIDE OF BED WITH PT, MEDICATIONS ADMINISTERED WITH NO COMPLICATIONS, PATIENT TALKED TO ME ABOUT WANTING IN HOME REHAB AND NOT GOING TO A REHAB FACILITY, NO FURTHER NEEDS AT THIS TIME, ROCIO MACK
[2020-10-29 12:06] VITALS: BP 137/50
--- NOTE | 2020-10-29 13:36 | NUR ---
rehab prescreen: thank you for this eval. currently the patient is refusing therapy but is max/mod assist with oob transfers. if unwilling to do therapy then we cannot admit to IRF. Also pt has [employer] insurance and will require a prior auth before able to admit. if any changes in partipation or staus change we will be glad to re eval. patti kidd lpn clinicial liasion
--- NOTE | 2020-10-29 15:44 | NUR ---
I have reviewed this patient and I concur with the Shift Assessment completed by the Licensed Practical Nurse today this shift.
[2020-10-29 15:57] VITALS: BP 157/64
[2020-10-29 22:30] VITALS: BP 141/61
[2020-10-30 04:31] VITALS: BP 146/67
[2020-10-30 05:05] LABS: BASOPHILS 0.4 % (0-2); EOSINOPHILS 10.8 % (0-7); IMMATURE GRANULOCYTES 0.9 % (0-5); LYMPHOCYTE ABS# 2.02 10x3/uL (1.18-3.74); LYMPHOCYTES 22.4 % (15-50); MCH 26.4 pg (26.0-34.0); MCHC 31.4 g/dL (31.0-37.0); MCV 84.1 fL (80.0-100.0); MEAN PLATELET VOLUME 9.1 fL (7.4-10.4); MONOCYTES 17.1 % (2-11); NEUTROPHIL ABS# 4.36 10x3/uL (1.56-6.13); NEUTROPHILS 48.4 % (40-80); PLATELET COUNT 237 10x3/uL (130-400); RBC 4.16 10x6/uL (4.00-5.40); RDW 15.6 % (11.5-14.5)
[2020-10-30 05:50] LABS: ALBUMIN 2.4 g/dL (3.4-5.0); ANION GAP 18.2 mmol/L (8-16); BILIRUBIN - TOTAL 0.27 mg/dL (0.2-1.3); CARBON DIOXIDE 21.9 mmol/L (21.0-32.0); CREATININE - SERUM 1.9 mg/dL (0.6-1.3); MAGNESIUM - SERUM 1.4 mg/dL (1.8-2.4); POTASSIUM - SERUM 4.1 mmol/L (3.5-5.1); PROTEIN - SERUM 6.1 g/dL (6.4-8.2); VANCOMYCIN - RANDOM 13.2 ug/mL (10.0-20.0)
--- NOTE | 2020-10-30 07:20 | NUR ---
RECIEVE REPORT. ALERT AND ORIENTED X4. SITTING UP IN BED. PURWICK HOOKED TO SUCTION. DENIES ANY NEEDS. CONTINUE PLAN OF CARE AND SAFETY PRECAUTIONS.
[2020-10-30 07:25] VITALS: BP 155/59
[2020-10-30 15:10] VITALS: BP 141/63
[2020-10-30 19:00] VITALS: BP 161/55
--- NOTE | 2020-10-30 19:10 | NUR ---
REPORT RECEIVED, PT CARE ASSUMED. PT LYING IN BED, AAOX4, "RESTING". C/O INCONTINENT BLADDER EPISODE, PT CLEANED, LINENS CHANGED, NEW PUREWICK PLACED. DENIES ANY OTHER NEEDS AT THIS TIME. BED LOWEST, SRX2, CL WITHIN REACH. CPOC.
[2020-10-31] VITALS: BP 126/59
[2020-10-31 04:00] VITALS: BP 144/60
[2020-10-31 04:58] LABS: BASOPHILS 0.4 % (0-2); HEMATOCRIT 33.5 % (36.0-48.0); HEMOGLOBIN 10.5 g/dL (12-16); IMMATURE GRANULOCYTES 0.7 % (0-5); LYMPHOCYTE ABS# 2.31 10x3/uL (1.18-3.74); LYMPHOCYTES 25.5 % (15-50); MCH 26.3 pg (26.0-34.0); MCHC 31.3 g/dL (31.0-37.0); MCV 83.8 fL (80.0-100.0); MEAN PLATELET VOLUME 9.1 fL (7.4-10.4); MONOCYTES 17.5 % (2-11); NEUTROPHIL ABS# 3.88 10x3/uL (1.56-6.13); NEUTROPHILS 42.9 % (40-80); PLATELET COUNT 256 10x3/uL (130-400); RDW 15.5 % (11.5-14.5); WBC 9.1 10x3/uL (4.8-10.8)
[2020-10-31 05:31] LABS: ALBUMIN 2.4 g/dL (3.4-5.0); ANION GAP 13.2 mmol/L (8-16); BILIRUBIN - TOTAL 0.23 mg/dL (0.2-1.3); CALCIUM 8.3 mg/dL (8.5-10.1); CARBON DIOXIDE 25.6 mmol/L (21.0-32.0); CREATININE - SERUM 2.1 mg/dL (0.6-1.3); POTASSIUM - SERUM 3.8 mmol/L (3.5-5.1); PROTEIN - SERUM 6.4 g/dL (6.4-8.2); VANCOMYCIN - RANDOM 21.5 ug/mL (10.0-20.0)
--- NOTE | 2020-10-31 07:20 | NUR ---
RECIEVE REPORT. RESTING IN BED WITH EYES CLOSED. NO SIGNS OF DISTRESS. CONTINUE PLAN OF CARE AND SAFETY PRECAUTIONS.
[2020-10-31 07:40] VITALS: BP 95/53
--- NOTE | 2020-10-31 09:00 | NUR ---
PT LAYING IN BED ON RIGHT SIDE. PT C/O BACK PAIN AND ITCHING. TYLENOL GIVEN REQUESTED AND LOTION APPLIED TO PATIENTS BACK. PT IS AAOX4, BNC AT 3L IN PLACE. PT CLEAN AND DRY WITH REQUESTS FOR COFFEE AND WATER WITH NO ICE. PT BS WAS TREATED WITH SS INSULIN ORDERED. NO OTHER REQUESTS AT THIS TIME.
--- NOTE | 2020-10-31 10:42 | EC ---
PATIENT:INGRIS CONTRERAS DATE OF SERVICE: 10/25/20 SEX: F MEDICAL RECORD: [id number] DATE OF : 33 LOCATION:D.M2 D.210 AGE OF PATIENT: 85 ADMISSION DATE: 10/25/20 REFERRING PHYSICIAN: INTERPRETING PHYSICIAN: CHARITY SANDOVAL MD ECHOCARDIOGRAM REPORT ECHO CHARGES 4 ECHO COMPLETE Date: 10/26/20 CLINICAL DIAGNOSIS: CHF ECHOCARDIOGRAPHIC MEASUREMENTS (adult normal given) AC root (d.<3.7cm) 3.2 cm LV Septum d (<1.2 cm> 1.1 cm Valve Excursion 1.7 cm LV Septum (systole) 1.7 cm Left Atria (s.<4.0cm> 4.3 cm LVPW d(<1.2cm) 1.1 cm RV (d.<2.3cm) 2.6 cm LVPW (sytole) 1.4 cm LV diastole(<5.6CM) 6.0 cm MV E-F(>70mm/sec) cm LV systole 4.5 cm LVOT Diameter 1.9 cm MV exc.(>10mm) 0.9 cm Est.ejection fraction (50-75%) % DOPPLER: LVIT cm/sec A 127 cm/sec E 115 cm/sec LA cm/sec RVSP 29 mmHg LVOT 92 cm/sec AOP1/2T m/s Asc. Ao 131 cm/sec RVOT 83 cm/sec RA cm/sec PA 106 cm/sec AV Gradient Peak 6.9 mmHg AV Mean 4.2 mmHg AV Area 2.4 cm MV Gradient Peak 8.0 mmHg MV Mean 4.1 mmHg MV Area cm COMMENTS: Team Facilitator: Meliad FRENCH Greeting Card Writer: 3 Dr. Abdi TAPE# Pericardial Effusion N DATE OF SERVICE: Adequate 2D, color flow imaging, spectral Doppler, and M-Mode. No LVH. LV internal dimensions are normal. Wall motion normal. EF greater than or equal to 55%. Aortic valve is tricuspid. No evidence of stenosis by Doppler interrogation. Left atrium is mildly dilated at 4.3 cm. Mitral valve shows no prolapse. Trace MR. Right-sided chambers are grossly normal. Mild TR. ECHOCARDIOGRAM REPORT [id number] INGRIS CONTRERAS TRANSINT:[id number] Voice Confirmation ID: [id number] DOCUMENT ID: [id number] CHARITY SANDOVAL MD at 1042 CC: [id number] DICTATION DATE: 10/26/20 1640 OFFICE HELPER: 10/26/20 2105 ADM IN [place] [id number] [place] [id number]
[2020-10-31 11:00] VITALS: BP 122/78
--- NOTE | 2020-10-31 12:31 | NUR ---
Nutrition Follow-up: Appetite seems to be improving. Good PO intake reported over the weekend. Diet: Cardiac, Carb Consistent, Glucerna TID PO intake: 80-100% (10/30) No new wt; last wt: 249.5# (10/26) Labs noted: BUN 32, Cre 2.1, GFR 24, Glu 141, Ca 8.3, Alb 2.4 Meds noted: Florajen, Protonix, Lasix, Humalog, electrolyte protocol -Change Glucerna to PRN. -Need new wt. -RD follow-up: 11/03
--- NOTE | 2020-10-31 14:56 | NUR ---
REHAB NOTE; I HAVE SPOKEN WITH THE PATIENT AND SHE IS WILLING TO COME TO REHAB AND PARTICIPATE WITH THERAPY WITH GOAL TO RETURN HOME. INFORMATION WILL HAVE TO BE SENT TO [facility] FOR AUTHORIZATION, AND WE WILL WAIT THEIR DETERMINATION. STEPHANIE CONTRERAS RN CLINICAL LIAISON, INPATIENT REHAB.
[2020-10-31 19:38] VITALS: BP 112/58
[2020-11-01 04:59] VITALS: BP 155/69
[2020-11-01 05:32] LABS: BASOPHILS 0.2 % (0-2); EOSINOPHILS 13.6 % (0-7); HEMOGLOBIN 10.5 g/dL (12-16); IMMATURE GRANULOCYTES 0.7 % (0-5); LYMPHOCYTE ABS# 2.38 10x3/uL (1.18-3.74); LYMPHOCYTES 29.7 % (15-50); MCHC 30.9 g/dL (31.0-37.0); MCV 84.2 fL (80.0-100.0); MEAN PLATELET VOLUME 9.3 fL (7.4-10.4); NEUTROPHILS 38.8 % (40-80); PLATELET COUNT 255 10x3/uL (130-400); RBC 4.04 10x6/uL (4.00-5.40); RDW 15.5 % (11.5-14.5)
[2020-11-01 05:47] LABS: ALBUMIN 2.5 g/dL (3.4-5.0); ANION GAP 10.8 mmol/L (8-16); BILIRUBIN - TOTAL 0.32 mg/dL (0.2-1.3); CALCIUM 8.6 mg/dL (8.5-10.1); CARBON DIOXIDE 26.2 mmol/L (21.0-32.0); CREATININE - SERUM 2.4 mg/dL (0.6-1.3); PROTEIN - SERUM 6.7 g/dL (6.4-8.2); VANCOMYCIN - RANDOM 15.6 ug/mL (10.0-20.0)
--- NOTE | 2020-11-01 07:20 | NUR ---
RECIEVE REPORT. RESTING IN BED WITH EYES CLOSED. SINUS RYTHM ON TELEMETRY. NO SIGNS OF DISTRESS. CONTINUE PLAN OF CARE AND SAFETY PRECAUTIONS.
[2020-11-01 08:00] VITALS: BP 116/72
--- NOTE | 2020-11-01 08:09 | NUR ---
REHAB NOTE: CLINICALS HAVE BEEN SENT TO [facility], WAITING ON DETERMINATION ON AUTH FOR INPATIENT REHAB. WILL LET [facility] KNOW OF THE DETERMINATION WHEN IT IS MADE. STEPHANIE CONTRERAS RN CLINICAL LIAISO
[2020-11-01 11:00] VITALS: BP 120/74
--- NOTE | 2020-11-01 14:41 | NUR ---
REHAB NOTE: AUTHORIZATION RECEIVED FROM [facility] FOR 7 DAYS IN ACUTE REHAB. WE WILL TAKE THE PATIENT TODAY. I HAVE RELAYED THIS TO ANTOINETTE DIAZ RN CM, AND WILL CALL THE FLOOR WITH A BED AFTER THE SCREEN PROCESS IS COMPLETED. STEPHANIE CONTRERAS RN CLINICAL LIAISON, ACUTE INPATIENT REHAB.
[2020-11-01] MEDS ORDERED: Vancomycin 1.25 GM/N IV (14:47)
[2020-11-01] MEDS ORDERED: PERFOROMIS20 MCG/21 UPD (14:47)
[2020-11-01] MEDS ORDERED: IPRAT-ALBUT 0.5-3 ML INH ×2 (14:47)
[2020-11-01] MEDS ORDERED: ACETAMINOPHEN325 MG PO (14:48)
[2020-11-01] MEDS ORDERED: HYDRALAZINE20 MG/ML IV (14:48)
[2020-11-01] MEDS ORDERED: ASPERCREME 5 OZ5 OZ TP (14:48)
[2020-11-01] MEDS ORDERED: LASIX INJ40 MG/4 ML IV (14:48)
[2020-11-01] MEDS ORDERED: PULMICORT0.5 MG/21 INH (14:49)
[2020-11-01] MEDS ORDERED: MUCINEX600 MG PO (14:49)
[2020-11-01] MEDS ORDERED: FLORAJEN3 CAPS460 MG PO (14:49)
[2020-11-01] MEDS ORDERED: HUMALOG 30100 UNITS/ SC (14:49)
[2020-11-01] MEDS ORDERED: CALMOSEPTINE OI71 GM TOPICAL (14:49)
--- NOTE | 2020-11-01 14:57 | NUR ---
OT NOTE: PT SITTING UP IN CHAIR UPON ENTERING ROOM. PT REPORTS THAT SHE IS SOAKING WET DUE TO URINATING ON HERSELF. GATHERED WASHCLOTHS, TOWELS, AND TOILETRIES TO ALLOW PT TO CLEAN UP. PROVIDED BASIC OF WATER.. PT ABLE TO WASH FACE, ARMS, CHEST.. REQUIRED MAX ASSIST WITH BACK, LES, AND PERINEAL AREA. PT CONTINUALLY TALKING ABOUT HOW BAD HER BACK AND PERINEAL AREA ARE ITCHING. CLEANED AREA THOROUGHLY AND APPLIED CAMOSEPTINE TO PERINEAL AREA AND LOTION ON BACK. PT ABLE TO REMAINS STANDING FOR APPROX 2 MIN WHILE CLEANING WAS PERFORMED. TRANSFERRED BACK INTO BED WITH MIN ASSIST FOR LE TERELL. KENNY MICHAEL, OTR/L [phone]
--- NOTE | 2020-11-01 17:13 | NUR ---
CALL REPORT TO AMAIRANI DICKSON. IV LEFT FOR IV ANTIBIOTICS. TRANSFER TO INPATIENT REHAB VIA WHEELCHAIR. REMAINS FREE FROM INJURY.
--- NOTE | 2020-11-01 17:28 | NUR ---
OT NOTE: PT REQUIRED TOTAL A FOR LB HYGIENE SECONDARY TO DIARRHEA. PT REQUIRED MIN A FOR UB HYGIENE TASKS. PT COMPLETED BED MOBILITY WITH MIN A. PT REQUIRED MOD A FOR BED TO CHAIR TSF. [id number] THANK YOU,VIKCI BERRY
--- NOTE | 2020-11-01 17:58 | MORECARE ---
CASE MANAGEMENT DISCHARGE SUMMARY PATIENT: INGRIS CONTRERASU UNIT: [id number] ADM DATE: 10/25/20 AGE: 85 : 33 SEX: F ROOM/BED: D.2102 AUTHOR: MARCEL,DOC PHYSICIAN: REFERRING PHYSICIAN: AGA SALINAS MD DATE OF SERVICE: 11/01/20 Case Management Discharge Planning Summary CT Patient Name: INGRIS CONTRERAS Attending MD : SHARMILA SALINAS, Medical Record: [id number] Encounter : [id number] Facility : [address] [place] [address] Admission Date : 121:16 Center Discharge Date : 11/01/2020 [facility] [place] [address] Date of : DC Plan ID : [id number] Age/Sex/Martia : 85/ F/W Printed on : 11/01/20 17:56 CT DCP Review Details Anticipated D/C: Expected LOS : Case Status : INITIATED - Initial Reviewe: [id number] - Anna Carreon Initial Review: 10/28/2020 Planned Disposi: 06 - Discharged/Trans to Home Under Care of [facility] Service in Anticipation of Skilled Care Final Discharge: - Final Reviewer : : Final Review : Comments CT Entered Date Type Reviewer 10/28/20 10:18 CT Discharge Planning Anna Carreon Comment CM met with patient to discuss discharge planning/needs. She states she lives alone. States she has no steps to enter her one level home. States Dr. Peña is her PCP. States her sister lives next door. She is unable to verify her sister's phone number. I informed her that PT recommends that she go to rehab prior to going home for strengthening. She tells me she gets along fine at home and is not going to rehab. I informed her that per notes, she is not walking a safe distance to go home. She states that she is able to get into her chair. States she has 2 aides from [employer] that come MTF from 8am-3PM. I have asked what she does after 3 for assistance and on the days they are not there and she said her sister helps her. She states [facility] was supposed to come out and start doing therapy. She states she wears oxygen at home prn and unsure what company supplies her. She states if her grand daughter cannot transport her home, she will need ambulance transfer. I continued to encourage rehab, but she absolutely refuses. CM will continue to follow and assist with discharge planning/needs. DCP Focus Questions & Answers DCP Screen High Risk Factors: Poor social support DCP Evaluation Patient's current cognitive status: *Oriented to person, place, situation, time and present Patient gives permission to discuss discharge Ariana Tijerina - , states unknown plans with: (name, relationship and number) number. Face sheet has [phone] Patient's ability to cope with chronic illness a. Adequate (0-3 ED visits in 6 mos., adequate financial resources, attends scheduled appts.) Does the patient have the ability to pay for or Yes attain post discharge needs / services? Functional screen assessment: Unable to manage ADLs without immediate ongoing assistance Physical Status: Partial care dependence Physical Status: Mobility impaired Physical Status: Compromised skin integrity Is there a likelihood that the patient will Yes require additional services to return to the preadmission environment? Functional screen comments: Refuses rehab Living Arrangements: Home Alone with Support Partial Dependence, assistance required for: Dressing Partial Dependence, assistance required for: Bathing Partial Dependence, assistance required for: Ambulation / Mobility Results of this evaluation have been discussed Patient with: Patient with capacity for self-care or can be Yes cared for in same environment as prior to hospitalization? Living arrangements comments: States her sister lives next door Baseline cognitive status: *Oriented to person, place, situation, time and present Facility / Agency name and contact information Ariana Tijerina - [phone] from Question 3 (if applicable): Medication Management: Patient states the need for assistance with medication administration Pharmacy name(s): [facility] Does Patient have transportation to get home and Yes to follow-up medical appointments when discharged from the hospital? Comments: States either her grand daughter will take her home or she will need ambulance service Would patient like to participate in any Care Not applicable Coordination programs (if applicable): Does the patient have electricity at home? Yes Does the patient have running water in their Yes house? Equipment in use: Walker - Rollator Equipment in use: Shower Chair Equipment in use: Hospital Bed Equipment in use: Home Oxygen with Nasal Cannula Mental health screen: No mental health history Psychosocial status: Elderly handicapped Resources / Services in place: Home health Resources / Services in place: [facility] Contact information for resources in use: [facility] DCP Re-evaluation Would patient like to participate in any Care Not applicable Coordination programs (if applicable): [facility] INGRIS CONTRERAS MR#: [id number] /Age/Sex/Bvwnph71-Bcj-82 /85/F /W Attending Physician Name: BRAD [id number] Patient Account:[id number] [facility] Page -1 of 1 All edits/amendments must be made on the electronic document DICTATION DATE: 11/01/201755 BASKET FILLER: EMILY 11/01/201755 RPT#: [id number] DC DATE:11/01/20 STATUS: DIS IN [facility] [address] [place] [address] END OF REPORT
--- NOTE | 2020-11-02 02:38 | MORECARE ---
CASE MANAGEMENT DISCHARGE SUMMARY PATIENT: INGRIS CONTRERAS GERSON UNIT: [id number] ADM DATE: 10/25/20 AGE: 85 : 33 SEX: F ROOM/BED: D.2102 AUTHOR: MARCEL,DOC PHYSICIAN: REFERRING PHYSICIAN: AGA SALINAS MD DATE OF SERVICE: 11/02/20 Case Management Discharge Planning Summary CT Patient Name: INGRIS CONTRERAS Attending MD : SHARMILA SALINAS, Medical Record: [id number] Encounter : [id number] Facility : [address] [place] [address] Admission Date : 121:16 Center Discharge Date : 11/01/[address] [place] [address] Date of : DC Plan ID : [id number] Age/Sex/Martia : 85/ F/W Printed on : 11/02/20 2:37 CT DCP Review Details Anticipated D/C: Expected LOS : Case Status : INITIATED - Initial Reviewe: [id number] - Anna Carreon Initial Review: 10/28/2020 Planned Disposi: 06 - Discharged/Trans to Home Under Care of [facility] in Anticipation of Skilled Care Final Discharge: - Final Reviewer : : Final Review : Comments CT Entered Date Type Reviewer 11/02/20 2:31 CT Discharge Planning Daly Zamora Comment CM was notified that patient was agreeing to go to inpatient rehab at [facility], CM notified Sheela that patient is agreeing to rehab, CM received a call back from Sheela in rehab and she stated that she had auth for patient and that she could d/c today if medically stable. D/C orders in patient to discharge to room 1118B. 10/28/20 10:18 CT Discharge Planning Anna Carreon Comment CM met with patient to discuss discharge planning/needs. She states she lives alone. States she has no steps to enter her one level home. States Dr. Peña is her PCP. States her sister lives next door. She is unable to verify her sister's phone number. I informed her that PT recommends that she go to rehab prior to going home for strengthening. She tells me she gets along fine at home and is not going to rehab. I informed her that per notes, she is not walking a safe distance to go home. She states that she is able to get into her chair. States she has 2 aides from [employer] that come MTF from 8am-3PM. I have asked what she does after 3 for assistance and on the days they are not there and she said her sister helps her. She states [facility] was supposed to come out and start doing therapy. She states she wears oxygen at home prn and unsure what company supplies her. She states if her grand daughter cannot transport her home, she will need ambulance transfer. I continued to encourage rehab, but she absolutely refuses. CM will continue to follow and assist with discharge planning/needs. DCP Focus Questions & Answers DCP Screen High Risk Factors: Poor social support DCP Evaluation Patient's ability to cope with chronic illness a. Adequate (0-3 ED visits in 6 mos., adequate financial resources, attends scheduled appts.) Patient gives permission to discuss discharge Ariana Tijerina - , states unknown plans with: (name, relationship and number) number. Face sheet has [phone] Patient's current cognitive status: *Oriented to person, place, situation, time and present Physical Status: Compromised skin integrity Physical Status: Mobility impaired Physical Status: Partial care dependence Functional screen assessment: Unable to manage ADLs without immediate ongoing assistance Does the patient have the ability to pay for or Yes attain post discharge needs / services? Partial Dependence, assistance required for: Ambulation / Mobility Partial Dependence, assistance required for: Bathing Partial Dependence, assistance required for: Dressing Living Arrangements: Home Alone with Support Functional screen comments: Refuses rehab Is there a likelihood that the patient will Yes require additional services to return to the preadmission environment? Baseline cognitive status: *Oriented to person, place, situation, time and present Living arrangements comments: States her sister lives next door Patient with capacity for self-care or can be Yes cared for in same environment as prior to hospitalization? Results of this evaluation have been discussed Patient with: Facility / Agency name and contact information Ariana Tijerina - [phone] from Question 3 (if applicable): Medication Management: Patient states the need for assistance with medication administration Pharmacy name(s): [facility] Does Patient have transportation to get home and Yes to follow-up medical appointments when discharged from the hospital? Would patient like to participate in any Care Not applicable Coordination programs (if applicable): Comments: States either her grand daughter will take her home or she will need ambulance service Does the patient have electricity at home? Yes Does the patient have running water in their Yes house? Equipment in use: Home Oxygen with Nasal Cannula Equipment in use: Hospital Bed Equipment in use: Shower Chair Equipment in use: Walker - Rollator Mental health screen: No mental health history Psychosocial status: Elderly handicapped Resources / Services in place: [facility] agency on aging Resources / Services in place: Home health Contact information for resources in use: [facility] DCP Re-evaluation Would patient like to participate in any Care Not applicable Coordination programs (if applicable): [facility] INGRIS CONTRERAS MR#: [id number] /Age/Sex/Ucaamm21-Tfc-57 /85/F /W Attending Physician Name: BRAD [id number] Patient Account:[id number] [facility] Page -1 of 1 All edits/amendments must be made on the electronic document DICTATION DATE: 11/02/20236 BONE DRIER OPERATOR: EMILY 11/02/20236 RPT#: [id number] DC DATE:11/01/20 STATUS: DIS IN [facility] [address] [place] [address] END OF REPORT
[2020-11-02] MEDS ORDERED: LASIX40 MG PO (03:52)
[2020-11-02] MEDS ORDERED: FLORAJEN3 CAPS460 MG PO (03:53)
[2020-11-02] MEDS ORDERED: FLUTICASONE PRO16 GM NASAL (03:54)
--- NOTE | 2020-11-03 03:29 | MORECARE ---
CASE MANAGEMENT DISCHARGE SUMMARY PATIENT: INGRIS CONTRERAS GERSON UNIT: [id number] ADM DATE: 10/25/20 AGE: 85 : 33 SEX: F ROOM/BED: D.2102 AUTHOR: MARCEL,DOC PHYSICIAN: REFERRING PHYSICIAN: AGA SALINAS MD DATE OF SERVICE: 11/03/20 Case Management Discharge Planning Summary CT Patient Name: INGRIS CONTRERAS Attending MD : SHARMILA SALINAS, Medical Record: [id number] Encounter : [id number] Facility : [address] [place] [address] Admission Date : 121:16 Center Discharge Date : 11/01/[address] [place] [address] Date of : DC Plan ID : [id number] Age/Sex/Martia : 85/ F/W Printed on : 11/03/20 3:29 CT DCP Review Details Anticipated D/C: Expected LOS : Case Status : INITIATED - Initial Reviewe: [id number] - Anna Carreon Initial Review: 10/28/2020 Planned Disposi: 06 - Discharged/Trans to Home Under Care of Organized Home Health Service in Anticipation of Skilled Care Final Discharge: 62 - Discharged/Trans to IP Rehab Facility Including Distinct Units of a Hospital Final Reviewer : [id number] : Daly Zamora Final Review : 11/03/[address] Entered Date Type Reviewer 11/02/20 2:31 CT Discharge Planning Daly Zamora Comment CM was notified that patient was agreeing to go to inpatient rehab at [facility], CM notified Sheela that patient is agreeing to rehab, CM received a call back from Sheela in rehab and she stated that she had auth for patient and that she could d/c today if medically stable. D/C orders in patient to discharge to room 1118B. 10/28/20 10:18 CT Discharge Planning Anna Carreon Comment CM met with patient to discuss discharge planning/needs. She states she lives alone. States she has no steps to enter her one level home. States Dr. Peña is her PCP. States her sister lives next door. She is unable to verify her sister's phone number. I informed her that PT recommends that she go to rehab prior to going home for strengthening. She tells me she gets along fine at home and is not going to rehab. I informed her that per notes, she is not walking a safe distance to go home. She states that she is able to get into her chair. States she has 2 aides from [employer] that come MTF from 8am-3PM. I have asked what she does after 3 for assistance and on the days they are not there and she said her sister helps her. She states [facility] [employer] was supposed to come out and start doing therapy. She states she wears oxygen at home prn and unsure what company supplies her. She states if her grand daughter cannot transport her home, she will need ambulance transfer. I continued to encourage rehab, but she absolutely refuses. CM will continue to follow and assist with discharge planning/needs. DCP Focus Questions & Answers DCP Screen High Risk Factors: Poor social support DCP Evaluation Patient's ability to cope with chronic illness a. Adequate (0-3 ED visits in 6 mos., adequate financial resources, attends scheduled appts.) Patient gives permission to discuss discharge Ariana Tijerina - , states unknown plans with: (name, relationship and number) number. Face sheet has [phone] Patient's current cognitive status: *Oriented to person, place, situation, time and present Physical Status: Compromised skin integrity Physical Status: Mobility impaired Physical Status: Partial care dependence Functional screen assessment: Unable to manage ADLs without immediate ongoing assistance Does the patient have the ability to pay for or Yes attain post discharge needs / services? Partial Dependence, assistance required for: Ambulation / Mobility Partial Dependence, assistance required for: Bathing Partial Dependence, assistance required for: Dressing Living Arrangements: Home Alone with Support Functional screen comments: Refuses rehab Is there a likelihood that the patient will Yes require additional services to return to the preadmission environment? Baseline cognitive status: *Oriented to person, place, situation, time and present Living arrangements comments: States her sister lives next door Patient with capacity for self-care or can be Yes cared for in same environment as prior to hospitalization? Results of this evaluation have been discussed Patient with: Facility / Agency name and contact information Ariana Tijerina - [phone] from Question 3 (if applicable): Medication Management: Patient states the need for assistance with medication administration Pharmacy name(s): [facility] Does Patient have transportation to get home and Yes to follow-up medical appointments when discharged from the hospital? Would patient like to participate in any Care Not applicable Coordination programs (if applicable): Comments: States either her grand daughter will take her home or she will need ambulance service Does the patient have electricity at home? Yes Does the patient have running water in their Yes house? Equipment in use: Home Oxygen with Nasal Cannula Equipment in use: Hospital Bed Equipment in use: Shower Chair Equipment in use: Walker - Rollator Mental health screen: No mental health history Psychosocial status: Elderly handicapped Resources / Services in place: [facility] agency on aging Resources / Services in place: Home health Contact information for resources in use: [place] DCP Re-evaluation Would patient like to participate in any Care Not applicable Coordination programs (if applicable): [facility] INGRIS CONTRERAS MR#: [id number] /Age/Sex/Jpouna82-Syc-13 /85/F /W Attending Physician Name: BRAD [id number] Patient Account:[id number] [facility] Page -1 of 1 All edits/amendments must be made on the electronic document DICTATION DATE: 11/03/20328 CORSAGE MAKER: EMILY 11/03/20328 RPT#: [id number] DC DATE:11/01/20 STATUS: DIS IN [facility] [address] [place] [address] END OF REPORT
--- NOTE | 2020-11-03 12:00 | MORECARE ---
CASE MANAGEMENT DISCHARGE SUMMARY PATIENT: INGRIS CONTRERAS GERSON UNIT: [id number] ADM DATE: 10/25/20 AGE: 85 : 33 SEX: F ROOM/BED: D.2102 AUTHOR: MARCEL,DOC PHYSICIAN: REFERRING PHYSICIAN: AGA SALINAS MD DATE OF SERVICE: 11/03/20 Case Management Discharge Planning Summary CT Patient Name: INGRIS CONTRERAS Attending MD : SHARMILA SALINAS, Medical Record: [id number] Encounter : [id number] Facility : [address] [place] [address] Admission Date : 121:16 Center Discharge Date : 11/01/[address] [place] [address] Date of : DC Plan ID : [id number] Age/Sex/Martia : 85/ F/W Printed on : 11/03/20 11:59 CT DCP Review Details Anticipated D/C: Expected LOS : Case Status : INITIATED - Initial Reviewe: [id number] - Anna Carreon Initial Review: 10/28/2020 Planned Disposi: 06 - Discharged/Trans to Home Under Care of Organized Home Health Service in Anticipation of Skilled Care Final Discharge: 62 - Discharged/Trans to IP Rehab Facility Including Distinct Units of a Hospital Final Reviewer : [id number] : Daly Zamora Final Review : 11/03/[address] Entered Date Type Reviewer 11/02/20 2:31 CT Discharge Planning Daly Zamora Comment CM was notified that patient was agreeing to go to inpatient rehab at [facility], CM notified Sheela that patient is agreeing to rehab, CM received a call back from Sheela in rehab and she stated that she had auth for patient and that she could d/c today if medically stable. D/C orders in patient to discharge to room 1118B. 10/28/20 10:18 CT Discharge Planning Anna Carreon Comment CM met with patient to discuss discharge planning/needs. She states she lives alone. States she has no steps to enter her one level home. States Dr. Peña is her PCP. States her sister lives next door. She is unable to verify her sister's phone number. I informed her that PT recommends that she go to rehab prior to going home for strengthening. She tells me she gets along fine at home and is not going to rehab. I informed her that per notes, she is not walking a safe distance to go home. She states that she is able to get into her chair. States she has 2 aides from [employer] that come MTF from 8am-3PM. I have asked what she does after 3 for assistance and on the days they are not there and she said her sister helps her. She states [facility] [employer] was supposed to come out and start doing therapy. She states she wears oxygen at home prn and unsure what company supplies her. She states if her grand daughter cannot transport her home, she will need ambulance transfer. I continued to encourage rehab, but she absolutely refuses. CM will continue to follow and assist with discharge planning/needs. DCP Focus Questions & Answers DCP Screen High Risk Factors: Poor social support DCP Evaluation Patient's current cognitive status: *Oriented to person, place, situation, time and present Patient gives permission to discuss discharge Ariana Tijerina - sister, states unknown plans with: (name, relationship and number) number. Face sheet has [phone] Patient's ability to cope with chronic illness a. Adequate (0-3 ED visits in 6 mos., adequate financial resources, attends scheduled appts.) Does the patient have the ability to pay for or Yes attain post discharge needs / services? Functional screen assessment: Unable to manage ADLs without immediate ongoing assistance Physical Status: Partial care dependence Physical Status: Mobility impaired Physical Status: Compromised skin integrity Is there a likelihood that the patient will Yes require additional services to return to the preadmission environment? Functional screen comments: Refuses rehab Living Arrangements: Home Alone with Support Partial Dependence, assistance required for: Dressing Partial Dependence, assistance required for: Bathing Partial Dependence, assistance required for: Ambulation / Mobility Results of this evaluation have been discussed Patient with: Patient with capacity for self-care or can be Yes cared for in same environment as prior to hospitalization? Living arrangements comments: States her sister lives next door Baseline cognitive status: *Oriented to person, place, situation, time and present Facility / Agency name and contact information Ariana Tijerina - [phone] from Question 3 (if applicable): Medication Management: Patient states the need for assistance with medication administration Pharmacy name(s): [facility] Does Patient have transportation to get home and Yes to follow-up medical appointments when discharged from the hospital? Comments: States either her grand daughter will take her home or she will need ambulance service Would patient like to participate in any Care Not applicable Coordination programs (if applicable): Does the patient have electricity at home? Yes Does the patient have running water in their Yes house? Equipment in use: Walker - Rollator Equipment in use: Shower Chair Equipment in use: Hospital Bed Equipment in use: Home Oxygen with Nasal Cannula Mental health screen: No mental health history Psychosocial status: Elderly handicapped Resources / Services in place: Home health Resources / Services in place: [facility] agency on aging Contact information for resources in use: [place] [facility] DCP Re-evaluation Would patient like to participate in any Care Not applicable Coordination programs (if applicable): [facility] INGRIS CONTRERAS MR#: [id number] /Age/Sex/Kgfers33-Otx-96 /85/F /W Attending Physician Name: BRAD [id number] Patient Account:[id number] [facility] Page -1 of 1 All edits/amendments must be made on the electronic document DICTATION DATE: 11/03/20 115 HAT [employer] CAP PARTS CUTTER HAND: EMILY 11/03/20 115 RPT#: [id number] DC DATE:11/01/20 STATUS: DIS IN [facility] [address] [place] [address] END OF REPORT
== END 2020-11-01 17:34 | DRG 291 ==
LOC: D.ER 17:54 → D.M2 21:16
PROVIDERS: Family Medicine; Internal Medicine Pulmonary Disease; ADMIT Family Medicine; ATTEND Family Medicine
DX: I13.0 Hypertensive heart and chronic kidney disease with heart failure and stage 1 through stage 4 chronic kidney disease, or unspecified chronic kidney disease (principal); I50.33 Acute on chronic diastolic (congestive) heart failure; J18.9 Pneumonia, unspecified organism; N39.0 Urinary tract infection, site not specified; J44.1 Chronic obstructive pulmonary disease with (acute) exacerbation; J96.11 Chronic respiratory failure with hypoxia; J44.0 Chronic obstructive pulmonary disease with (acute) lower respiratory infection; R78.81 Bacteremia; D50.9 Iron deficiency anemia, unspecified; E11.65 Type 2 diabetes mellitus with hyperglycemia; E11.22 Type 2 diabetes mellitus with diabetic chronic kidney disease; N18.9 Chronic kidney disease, unspecified; E78.5 Hyperlipidemia, unspecified; D63.1 Anemia in chronic kidney disease; M35.3 Polymyalgia rheumatica

== ENCOUNTER 2020-11-01 17:25 | Inpatient (IN) | payer MEDICARE, MEDICAID ==
[~2020-11-01] VITALS: Ht 170.2 cm; Wt 106.6 kg
--- NOTE | ~2020-11-01 | RHP ---
PATIENT: INGRIS CONTRERAS MEDICAL RECORD: [id number] ACCOUNT: [id number] [facility] 31 ADMISSION DATE: 11/01/20 REHABILITATION HISTORY AND PHYSICAL EXAMINATION POST ADMISSION PHYSICIAN EXAMINATION POST ADMISSION PHYSICAL EXAMINATION AND HISTORY AND PHYSICAL ADMITTING DIAGNOSIS: Chronic obstructive pulmonary disease exacerbation. HISTORY OF PRESENT ILLNESS: The patient is an 79-year-old female who resides at home, was doing home health services for therapy of a fractured right ankle. Caregivers noted that they were going out a couple of hours a day for 4 days a week. She presented in the Emergency Room on 10/23/2020 with complaints of low back pain, urinary frequency, cough. Her sat was 88% on room air. Chest x-ray showed a probable pneumonitis. X-ray of her spine showed no obvious abnormalities. She has been receiving updrafts. She did have a urine culture that grew out E. coli. She continues on vancomycin. She is having daily blood draws to check to make sure that she does not become toxic on this. During her stay, she became quite deconditioned. She was not able to return home safely. They had to remove her pubic cath and hopefully get her up to be able to use the bathroom. The patient has polymyalgia rheumatica, which complicates the situation. She is currently having her oxygen sat monitored closely. She was not on home O2. She was given respiratory therapy, lab treatments. They were following chest x-rays to follow up her pneumonia versus pneumonitis. She is not able to get out of bed on her own and perform ADLs independently. She is requiring intense PT and OT hopefully to get her back to her prior level of functioning. COMORBIDITIES: Include anemia, CHF, chronic kidney disease, COPD, difficulty walking, diabetes, edema, electrolyte abnormalities, fatigue, and safety problems. PAST MEDICAL HISTORY: Significant for diastolic CHF, COPD, diabetes, polymyalgia rheumatica, chronic kidney disease, and hyperlipidemia. She had COVID. She has had an ankle fracture. PAST SURGICAL HISTORY: Includes cholecystectomy. She has had an ankle repair. ALLERGIES: PHENOBARBITAL. CURRENT MEDICATIONS: Include Floranex daily, she is on Flonase nasal spray daily, potassium chloride 20 mEq daily, furosemide 40 mg daily, carvedilol 6.25 mg b.i.d. with meals, Protonix 40 mg daily, Synthroid 100 mcg daily, simvastatin 10 mg at bedtime. She is on a low resistance sliding scale of Humalog. She is on Mucinex 1200 mg b.i.d., amlodipine 5 mg at bedtime, Neurontin 600 mg b.i.d., vancomycin 1.25 mg q.24 hours. She is on electrolyte protocol at this time. She is on Benadryl 25 mg q.6 hours p.r.n. She is on trolamine sakuctkate cream 10% to apply as needed. She is on Zofran 4 mg daily, Calmoseptine daily, DuoNeb updrafts. She is on a glucose replacement protocol. She is on budesonide 0.5 mg b.i.d., Tylenol 650 mg q.6 p.r.n., and once again Ventolin updrafts. HABITS: No current alcohol or tobacco use. FAMILY HISTORY: Noncontributory. HISTORY AND PHYSICAL [id number] INGRIS CONTRERAS SOCIAL HISTORY: The patient hopes to return back home after she leaves the hospital, hopefully better than her prior level of functioning. REVIEW OF SYSTEM: GENERAL: Does complain of weakness and fatigue. HEENT: Does complain of cold, cough, and congestion. CARDIOVASCULAR: Denies any chest pain. PHYSICAL EXAMINATION: VITAL SIGNS: Stable and afebrile. GENERAL: An elderly female who is somewhat obese. She is alert upon exam. HEENT: Normocephalic and atraumatic. Mucosa moist. NECK: Supple with no lymphadenopathy. LUNGS: Decreased breath sounds in both bases. She does have some inspiratory wheezes. CARDIOVASCULAR: Regular rate and rhythm. ABDOMEN: Soft, benign, obese. EXTREMITIES: No clubbing, cyanosis. She does have some peripheral edema. NEUROLOGIC: She has got diffuse weakness. LABORATORY DATA: Sodium is 134, potassium 4.1, BUN and creatinine of 39 and 2.3, and blood sugar was noted to be 186. Her vancomycin level was 24.7 random. She is being managed by pharmacy. Her white count is 8.7, H&H of 10 and 33, and platelet count is noted to be 232. ASSESSMENT: This is an 85-year-old female patient admitted to rehab with a working diagnosis of recent ankle fracture complicated by chronic obstructive pulmonary disease exacerbation. The patient has potential to make improvement. We instituted the following multidisciplinary therapies including, not limited to physical, occupational, respiratory, speech, nutritional services, prosthetics and orthotics. Given her complex medical condition and risks for more complications, rehabilitation services cannot be provided at a low level of care such as fci facility. PLAN: 1. Admit to [facility] for inpatient therapy to include the following disciplines; A. Physical therapy to improve gait, all transfer skills and bed mobility to a modified independent level. B. Occupational therapy to improve activities of daily living. C. Case management to help with discharge planning and placement options. D. Nutrition to assist with nutritional needs. E. Rehabilitation nursing to assist in monitoring the patient's underlying medical conditions and to assist with any type of bowel or bladder management. 2. The patient's current medications and medical care will be continued. 3. Placed on standard fall precautions. 4. The patient's estimated length of stay is approximately 7-10 days. 5. We discussed this patient during care team staff meeting this week. TRANSINT:[id number] Voice Confirmation ID: [id number] DOCUMENT ID: [id number] 11/08/2020 Edited for kamala JORGE. ANIA notes whether there has been none or any medical/functional HISTORY AND PHYSICAL [id number] INGRIS CONTRERAS GERSON change since admission: - No change since preadmission screen. ANIA attests patient continues to be appropriate for IRF: - Continues to be appropriate. RUSSEL CARMEN MD CC: [id number] DICTATION DATE: 11/02/20 1153 BILINGUAL EXECUTIVE ASSISTANT: 11/02/20 1331 ADM IN [facility] [address] [place] [address]
[~2020-11-01 17:25] MED LIST changes: +ACETAMINOPHEN325 MG PO; +ALDACTONE25 MG; +ASPERCREME 5 OZ5 OZ TP; +CALMOSEPTINE OI71 GM TOPICAL; +COLACE100 MG; +FLORAJEN3 CAPS460 MG PO; +HUMALOG 30100 UNITS/ SC; +HYDRALAZINE HCL25 MG; +HYDRALAZINE20 MG/ML IV; +IPRAT-ALBUT 0.5-3 ML INH; +K-DUR20 MEQ PO; +LASIX INJ40 MG/4 ML IV; +MUCINEX600 MG PO; +NORVASC5 MG PO; +PERFOROMIS20 MCG/21 UPD; +PROTONIX40 MG PO; +PULMICORT0.5 MG/21 INH; +Vancomycin 1.25 GM/N IV
--- NOTE | 2020-11-01 17:44 | NUR ---
RECIEVED FROM ACUTE FLOOR TO ROOM 1118B.O2 ON AT 2L/NC.ORIENTED TO ROOM AND SURROUNDINGS.
--- NOTE | 2020-11-01 20:15 | NUR ---
PT IN BED, NO IMMEDIATE NEEDS NOTED, FLUIDS/CL WITHIN REACH, THERMOSTAT ON 85, NEW ADMIT, STATES COLD, LFT BUTTOCK INSIDE FOLD 1.5CM STAGE II, AC/HS, HX. COPD,CHF,UTI'S, CAME INTO ED W/UROSEPSIS, ALLERGY TO PHENOBARBITOL, SL TO LFA, NEEDS VANC 5 DAYS
[2020-11-02 00:41] VITALS: BP 182/69; BMI 36.9
[2020-11-02] MEDS ORDERED: LASIX40 MG PO (03:52)
[2020-11-02] MEDS ORDERED: FLORAJEN3 CAPS460 MG PO (03:53)
[2020-11-02] MEDS ORDERED: FLUTICASONE PRO16 GM NASAL (03:54)
[2020-11-02 05:36] LABS: BASOPHILS 0.5 % (0-2); EOSINOPHILS 13.4 % (0-7); HEMATOCRIT 33.2 % (36.0-48.0); HEMOGLOBIN 10.2 g/dL (12-16); IMMATURE GRANULOCYTES 0.9 % (0-5); LYMPHOCYTE ABS# 2.31 10x3/uL (1.18-3.74); LYMPHOCYTES 26.6 % (15-50); MCHC 30.7 g/dL (31.0-37.0); MCV 84.5 fL (80.0-100.0); MEAN PLATELET VOLUME 9.5 fL (7.4-10.4); MONOCYTES 19.4 % (2-11); NEUTROPHILS 39.2 % (40-80); PLATELET COUNT 232 10x3/uL (130-400); RBC 3.93 10x6/uL (4.00-5.40); RDW 15.5 % (11.5-14.5); WBC 8.7 10x3/uL (4.8-10.8)
[2020-11-02 06:02] LABS: ANION GAP 13.5 mmol/L (8-16); CALCIUM 8.5 mg/dL (8.5-10.1); CARBON DIOXIDE 23.6 mmol/L (21.0-32.0); CREATININE - SERUM 2.3 mg/dL (0.6-1.3); POTASSIUM - SERUM 4.1 mmol/L (3.5-5.1); VANCOMYCIN - RANDOM 24.7 ug/mL (10.0-20.0)
--- NOTE | 2020-11-02 08:00 | NUR ---
SHIFT ASSMT COMPLETED.
--- NOTE | 2020-11-02 12:00 | NUR ---
SITTING UP EATING LUNCH.
[2020-11-02 13:18] VITALS: Ht 170.2 cm; Wt 106.6 kg
--- NOTE | 2020-11-02 16:06 | NUR ---
CARE TEAM MEETING: PATIENT ADMITTS TO REHAB FROM ACUTE FLOOR. DR. LUDWIG IS HER PCP, SHE IS A CLIENT OF [facility] AND SHE HAS AN AIDE THREE DAYS A WEEK WITH [facility] ON [address]. HER DISCHARGE PLANS ARE FOR HR TO RETURN TO HER HOME.PATIENT IS NEW TO UNIT AND WILL BE RA AT NEXT MEETING. WILL CONTINUE TO FOLLOW WITH PATIENT.
--- NOTE | 2020-11-02 18:50 | NUR ---
BEDSIDE REPORT COMPLETE. RECEIVED PT SITTING UP IN BED, ALERT AND ORIENTED X4. DENIES ANY NEEDS OR PAIN. BLE RED WITH THICK WRINKLED SKIN. NO OPEN WOUNDS NOTED. LEFT WRIST IV SALINE LOCKED. NO S/S INFECTION. CONTINUES ON 3L VIA NC. CALL LIGHT AND WATER WITHIN REACH. FALL PRECAUTIONS IN PLACE. CPOC
[2020-11-02 20:33] VITALS: BP 168/72
--- NOTE | 2020-11-03 00:15 | NUR ---
PT LYING IN BED SUPINE EYES CLOSED RESTING. REPOSITIONED TO LEFT SIDE WITH MIN ASSIST. NO DISTRESS NOTED. CALL LIGHT WITHIN REACH.
--- NOTE | 2020-11-03 02:00 | NUR ---
INCONTINENCY CARE PROVIDED. URINE INCONTINENCY ONLY. CALMOSEPTINE APPLIED TO BUTTOCKS. C/O ITCHING ALL OVER BENADRYL ADMINISTERED. DENIES ANY OTHER NEEDS OR PAIN. NO DISTRESS NOTED. CALL LIGHT WITHIN REACH.
--- NOTE | 2020-11-03 04:05 | NUR ---
pt lying in bed eyes closed resting. rr even and unlabored. no acute changes in condition noted. call light within reach.
--- NOTE | 2020-11-03 05:42 | NUR ---
FSBS 201. INCONTINENCE CARE PROVIDED. URINE INCONTINENCY ONLY. CALMOSEPTINE APPLIED TO BUTTOCKS. DENIES ANY OTHER NEEDS. REPOSITIONED TO LEFT SIDE. CALL LIGHT WITHIN REACH.
[2020-11-03 08:00] VITALS: BP 146/60
[2020-11-03 09:36] LABS: CREATININE - SERUM 2.3 mg/dL (0.6-1.3); VANCOMYCIN - RANDOM 24.4 ug/mL (10.0-20.0)
--- NOTE | 2020-11-03 19:23 | NUR ---
BEDSIDE REPORT COMPLETE. PT LYING IN BED ON LEFT SIDE RESTING. ALERT AND ORIENTED X4. C/O BILATERAL HIP PAIN 5/10 ACHING PAIN. PT ALSO C/O ITCHING ALL OVER, EXPLAINED TO PT SKIN IS DRY APPLIED LOTION ALL OVER BODY AND PT KEEPS ROOM VERY HOT WITH 4 BLANKETS ON. PT STILL C/O BEING COLD. VS STABLE. SHIFT ASSESSMENT COMPLETE. NO OTHER NEEDS VOICED. PT IS CLEAN AND DRY. CALL LIGHT WITHIN REACH. LEFT WRIST IV SL. WITHOUT S/S INFECTION. FALL PRECAUTIONS IN PLACE. CPOC
[2020-11-03 19:27] VITALS: BP 133/50
--- NOTE | 2020-11-04 00:10 | NUR ---
Incontinent care provided. Urine incontinency. no other needs voiced. Call light within reach.
--- NOTE | 2020-11-04 04:01 | NUR ---
PT LYING IN BED ON RIGHT SIDE EYES CLOSED RESTING. RR EVEN AND UNLABORED. CALL LIGHT WITHIN REACH.
--- NOTE | 2020-11-04 04:32 | NUR ---
INCONTINENCE CARE PROVIDED, MODERATE URINE INCONTINENCY. CALMOSEPTINE APPLIED TO PERIAREA AND BUTTOCKS. POSITIONED TO LEFT SIDE. C/O 4/10 DEEP ACHING PAIN AND ITCHING ALL OVER. NO OTHER NEEDS VOICED. CALL LIGHT WITHIN REACH.
--- NOTE | 2020-11-04 05:51 | NUR ---
PT LYING IN BED ON LEFT SIDE EYES CLOSED RESTING. NO DISTRESS NOTED. CONTINUES ON 3L VIA NC. BRIEF CLEAN AND DRY. NO ACUTE CHANGES IN CONDITION THIS SHIFT. CALL LIGHT AND WATER WITHIN REACH
[2020-11-04 06:33] LABS: BASOPHILS 0.5 % (0-2); EOSINOPHILS 11.6 % (0-7); HEMATOCRIT 33.7 % (36.0-48.0); HEMOGLOBIN 10.2 g/dL (12-16); IMMATURE GRANULOCYTES 0.9 % (0-5); LYMPHOCYTE ABS# 2.67 10x3/uL (1.18-3.74); LYMPHOCYTES 30.7 % (15-50); MCHC 30.3 g/dL (31.0-37.0); MCV 85.8 fL (80.0-100.0); MEAN PLATELET VOLUME 9.6 fL (7.4-10.4); MONOCYTES 16.5 % (2-11); NEUTROPHIL ABS# 3.46 10x3/uL (1.56-6.13); NEUTROPHILS 39.8 % (40-80); RBC 3.93 10x6/uL (4.00-5.40); RDW 15.4 % (11.5-14.5); WBC 8.7 10x3/uL (4.8-10.8)
[2020-11-04 06:40] LABS: PLATELET COUNT 289 10x3/uL (130-400)
[2020-11-04 06:53] LABS: CALCIUM 8.6 mg/dL (8.5-10.1); CARBON DIOXIDE 23.4 mmol/L (21.0-32.0); CREATININE - SERUM 2.7 mg/dL (0.6-1.3); VANCOMYCIN - RANDOM 21.5 ug/mL (10.0-20.0)
[2020-11-04 07:02] LABS: ANION GAP 15.3 mmol/L (8-16); POTASSIUM - SERUM 4.7 mmol/L (3.5-5.1)
[2020-11-04 08:00] VITALS: BP 134/60
--- NOTE | 2020-11-04 08:16 | NUR ---
LAYING DOWN IN BE AT ODD ANGLE EATING BREKFAST. WAS SHOVELING EGGS AND A BISCUIT IN MOUTH FAST WHEN SHE GOT CHOKED. WAS ABLE TO CLEAR AIRWAY BUT ENCOURGAGED PT TO SIT UP ON SIDE OF BED FOR MEALS AND SLOW DOWN WHEN EATING. SHE KEPT DECLINING OXYGEN STATING SHE DID NOT NEED IT EVEN THOUGH HER SATS WERE IN LOW 90'S. SHE IS INCONT OF URINE.
--- NOTE | 2020-11-04 20:14 | NUR ---
AWAKE AND ALERT. RESTING IN BED WITH RESPIRATIONS UNLABORED. LEFT WRIST SALINE LOCK INTACT. NO ACUTE DISTRESS NOTED. CALL LIGHT IN REACH.
[2020-11-04 21:33] VITALS: BP 128/69
--- NOTE | 2020-11-05 05:35 | NUR ---
QUIET HOURS. NO ACUTE CHANGES IN CONDITION THIS SHIFT. RESTING IN BED WITH NO DISTRESS NOTED.
[2020-11-05 06:38] LABS: CREATININE - SERUM 2.9 mg/dL (0.6-1.3); VANCOMYCIN - RANDOM 17.2 ug/mL (10.0-20.0)
--- NOTE | 2020-11-05 08:00 | NUR ---
SHIFT ASSMT COMPLETED.
[2020-11-05 08:53] VITALS: BP 106/73
[2020-11-05 19:00] VITALS: BP 134/64
--- NOTE | 2020-11-05 19:38 | NUR ---
RESTING IN BED WITH RESPIRATIONS UNLABORED. NO DISTRESS NOTED. CALL LIGHT IN REACH.
--- NOTE | 2020-11-06 05:04 | NUR ---
QUIET HOURS. NO ACUTE CHANGES IN CONDITION THIS SHIFT. RESTING IN BED WITH NO DISTRESS NOTED. HAS BEEN UP TO [facility] SEVERAL TIMES WITH BLADDER TRAINING. HAS HAD LESS INCONTINENT EPISODES THIS SHIFT.
[2020-11-06 06:49] LABS: CREATININE - SERUM 2.5 mg/dL (0.6-1.3); VANCOMYCIN - RANDOM 12.2 ug/mL (10.0-20.0)
--- NOTE | 2020-11-06 08:00 | NUR ---
SHIFT ASSMT COMPLETED.
[2020-11-06 08:09] VITALS: BP 131/74
--- NOTE | 2020-11-06 12:00 | NUR ---
UP OOB EATING LUNCH.
[2020-11-06 19:00] VITALS: BP 130/46
--- NOTE | 2020-11-06 19:16 | NUR ---
AWAKE AND ALERT. RESTING IN BED. CONTINUES TO HAVE COARSE LUNG SOUNDS WITH INSPIRATORY AND EXPIRATORY WHEEZES. CALL LIGHT IN REACH.
--- NOTE | 2020-11-07 04:50 | NUR ---
QUIET HOURS. NO ACUTE CHANGES IN CONDITION THIS SHIFT, RESTING IN BED WITH NO DISTRESS NOTED.
[2020-11-07 06:56] LABS: BASOPHILS 0.4 % (0-2); EOSINOPHILS 13.9 % (0-7); HEMATOCRIT 35.5 % (36.0-48.0); IMMATURE GRANULOCYTES 0.5 % (0-5); LYMPHOCYTE ABS# 2.21 10x3/uL (1.18-3.74); MCH 26.4 pg (26.0-34.0); MCV 85.1 fL (80.0-100.0); MEAN PLATELET VOLUME 9.6 fL (7.4-10.4); MONOCYTES 15.8 % (2-11); NEUTROPHILS 43.4 % (40-80); PLATELET COUNT 330 10x3/uL (130-400); RBC 4.17 10x6/uL (4.00-5.40); RDW 15.6 % (11.5-14.5); WBC 8.5 10x3/uL (4.8-10.8)
[2020-11-07 07:18] LABS: ANION GAP 16.1 mmol/L (8-16); CALCIUM 9.2 mg/dL (8.5-10.1); CREATININE - SERUM 2.4 mg/dL (0.6-1.3); POTASSIUM - SERUM 5.1 mmol/L (3.5-5.1); VANCOMYCIN - RANDOM 18.5 ug/mL (10.0-20.0)
[2020-11-07 08:00] VITALS: BP 110/61
--- NOTE | 2020-11-07 12:53 | NUR ---
Nutrition Re-Assessment Diet: Diabetic PO intake: ~71% average x last 6 meals. She reports good appetite and denies needs from dietary at this time. 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 Patient is progressing towards meeting nutrition goals at this time. Recommendations/Interventions: -Recommend continue current diet. Will continue to honor food preferences within diet restrictions. -Will continue to monitor PO intake and wt trend. -RD will follow-up within 7 days.
--- NOTE | 2020-11-07 13:26 | NUR ---
CLINICAL UPDATES FAXED TO [facility] AT , AUTH. # [id number] WITH A TENATIVE DC DATE OF 11/11/20. WILL CONTINUE TO FOLLOW WITH PATIENT.
[2020-11-07 19:33] VITALS: BP 114/66
--- NOTE | 2020-11-07 19:45 | NUR ---
BEDSIDE REPORT COMPLETE. RECEIVED PT LYING IN BED ON LEFT SIDE RESTING. C/O ITCHING ALL OVER. ROOM IS EXTREMELY HOT AND SKIN IS DRY AND SCALY. APPLIED LOTION ALL OVER BACK AND LEGS. DENIES ANY PAIN. CONTINUES ON O2/3L VIA NC. LEFT WRIST IV PATENT. DRESSING AND SWAB CAPS INTACT. DENIES ANY PAIN OR NEEDS. CALL LIGHT AND WATER WITHIN REACH. FALL PRECAUTIONS IN PLACE. CPOC
--- NOTE | 2020-11-08 01:50 | NUR ---
PT C/O LOWER BACK 7/10 DEEP SHARP PAIN. TRAMADOL 50MG ADMININSTERED PER PT REQUEST. NO OTHER NEEDS VOICED. PT POSITIONED ON LEFT SIDE. CALL LIGHT WITHIN REACH
--- NOTE | 2020-11-08 05:49 | NUR ---
PT LYING IN BED ON RIGHT SIDE. FSBS 116. DENIES ANY NEEDS OR PAIN. NO ACUTE CHANGES IN CONDITION THIS SHIFT. CALL LIGHT AND WATER WITHIN REACH. FALL PRECAUTIONS IN PLACE. CPOC
[2020-11-08 08:01] VITALS: BP 131/78
--- NOTE | 2020-11-08 19:12 | NUR ---
BEDSIDE REPORT COMPLETE. RECEIVED PT LYING IN BED ON LEFT SIDE. ALERT AND ORIENTED X4. DENIES ANY NEEDS OR PAIN. NO DISTRESS NOTED. CONTINUES ON O2/3L VIA NC. LEFT WRIST IV PATENT. DRESSING INTACT. CALL LIGHT AND WATER WITHIN REACH. FALL PRECAUTIONS IN PLACE. CPOC
[2020-11-08 20:08] VITALS: BP 140/92
--- NOTE | 2020-11-09 01:37 | NUR ---
PT LYING IN BED ON LEFT SIDE EYES CLOSED RESTING. RR EVEN AND UNLABORED. CONTINUES ON O2/3L VIA NC. CALL LIGHT WITHIN REACH
--- NOTE | 2020-11-09 06:28 | NUR ---
FSBS 72. 4OZ OF OJ GIVEN, PT WOULD ONLY DRINK 2OZ OF OJ. ENCOURAGED PT TO DRINK REST OF OJ TO KEEP BS FROM DROPPING FURTHER BEFORE BREAKFAST. PT VERBALIZED UNDERSTANDING. CALL LIGHT WITHIN REACH.
[2020-11-09 06:44] LABS: BASOPHILS 0.3 % (0-2); EOSINOPHILS 14.3 % (0-7); HEMATOCRIT 35.9 % (36.0-48.0); HEMOGLOBIN 10.9 g/dL (12-16); IMMATURE GRANULOCYTES 0.6 % (0-5); LYMPHOCYTE ABS# 1.93 10x3/uL (1.18-3.74); LYMPHOCYTES 21.5 % (15-50); MCHC 30.4 g/dL (31.0-37.0); MCV 85.5 fL (80.0-100.0); MEAN PLATELET VOLUME 9.8 fL (7.4-10.4); MONOCYTES 11.7 % (2-11); NEUTROPHIL ABS# 4.63 10x3/uL (1.56-6.13); NEUTROPHILS 51.6 % (40-80); PLATELET COUNT 331 10x3/uL (130-400); RDW 15.8 % (11.5-14.5)
[2020-11-09 07:16] LABS: ANION GAP 12.8 mmol/L (8-16); CALCIUM 8.8 mg/dL (8.5-10.1); CARBON DIOXIDE 25.8 mmol/L (21.0-32.0); CREATININE - SERUM 2.6 mg/dL (0.6-1.3); POTASSIUM - SERUM 5.6 mmol/L (3.5-5.1)
[2020-11-09 07:58] VITALS: BP 159/64
--- NOTE | 2020-11-09 08:00 | NUR ---
SHIFT ASSMT COMPLETED
--- NOTE | 2020-11-09 14:55 | NUR ---
NUTRITION FOLLOW UP: COMMENTS: Patient continues eating well for the past 6 meals. No new weight recorded since 11/02. DIET: Diabetic Diet PO INTAKE: 70% avg for last 6 meals WEIGHT: 235 lbs on 11/02 BM: x 2 on 11/09 SKIN: Stage 2 PU SIG MEDS: Protonix, Synthroid, Probiotic, Lasix, Humalog, Colace, Humulin SIG LABS: K-5.6(H), BUN-49(H), Na-135(L), Cr-2.6(H) RECOMMENDATIONS: Continue DM diet as tolerated Encourage high protein foods for wound healing Encourage low potassium foods due to high potassium level Assistance with meals if needed RD to follow up within 5 days
--- NOTE | 2020-11-09 19:35 | NUR ---
AWAKE AND ALERT. RESTING IN BED WITH O2/3L ON PER NASAL CANNULA. BILATERAL WHEEZING NOTED. STATES SHE FEELS OKAY. LEFT WRIST SALINE LOCK IN PLACE. CALL LIGHT IN REACH.
[2020-11-09 19:51] VITALS: BP 162/67
--- NOTE | 2020-11-10 05:52 | NUR ---
QUIET HOURS. NO ACUTE CHANGES IN CONDITION THIS SHIFT. RESTING IN BED WITH NO DISTRESS NOTED.
--- NOTE | 2020-11-10 08:00 | NUR ---
SHIFT ASSMT COMPLETED.
[2020-11-10 08:27] VITALS: BP 157/67
--- NOTE | 2020-11-10 19:42 | NUR ---
AWAKE AND ALERT. SITTING IN WHEELCHAIR IN ROOM. USES INCENTIVE SPIROMETER AND FLUTTER WELL. COUGHS SOME. CONTINUES TO HAVE MILD WHEEZES BILATERALLY.. O2/3L ON PER NASAL CANNULA. CALL LIGHT IN REACH.
[2020-11-10 20:19] VITALS: BP 145/62
--- NOTE | 2020-11-11 04:53 | NUR ---
QUIET HOURS. NO ACUTE CHANGES IN CONDITION THIS SHIFT. RESTING IN BED WITH NO DISTRESS NOTED. NO FURTHER C/O BACK PAIN AT THIS TIME.
[2020-11-11 06:00] LABS: BASOPHILS 0.4 % (0-2); EOSINOPHILS 0 % (0-7); HEMATOCRIT 33.1 % (36.0-48.0); HEMOGLOBIN 10.1 g/dL (12-16); IMMATURE GRANULOCYTES 0.7 % (0-5); LYMPHOCYTE ABS# 0.92 10x3/uL (1.18-3.74); LYMPHOCYTES 12.8 % (15-50); MCHC 30.5 g/dL (31.0-37.0); MCV 85.3 fL (80.0-100.0); MEAN PLATELET VOLUME 10.3 fL (7.4-10.4); MONOCYTES 5.4 % (2-11); NEUTROPHILS 80.7 % (40-80); PLATELET COUNT 317 10x3/uL (130-400); RBC 3.88 10x6/uL (4.00-5.40); RDW 15.7 % (11.5-14.5); WBC 7.2 10x3/uL (4.8-10.8)
[2020-11-11 06:31] LABS: ANION GAP 12.8 mmol/L (8-16); CALCIUM 8.7 mg/dL (8.5-10.1); CREATININE - SERUM 2.5 mg/dL (0.6-1.3); POTASSIUM - SERUM 5.8 mmol/L (3.5-5.1)
[2020-11-11 11:03] VITALS: BP 148/65
--- NOTE | 2020-11-11 14:09 | NUR ---
CARE TEAM MEETING LATE ENTRY FOR 11/09/20: PATIENT IS PROGRESSING IN THERAPY HER TENATIVE DC DATE IS 11/15/20. WILL CONTINUE TO FOLLOW WITH PATIENT.
--- NOTE | 2020-11-11 16:01 | NUR ---
RESTING QUIETLY IN BED. IS LAYING ON SIDE RIGHT NOW. SHE LIKES HER ROOM VERY WARM STATING SHE IS SO COLD NATURED. IS STILL INCONT AT TIMES AND HAS A BED SIDE COMMODE RIGHT BY HER BED. EDEMA TO BLE NOTED. CALL LIGHT IN REACH
[2020-11-11 21:18] VITALS: BP 167/67
[2020-11-12 07:24] LABS: ANION GAP 10.9 mmol/L (8-16); CALCIUM 8.7 mg/dL (8.5-10.1); CARBON DIOXIDE 28.1 mmol/L (21.0-32.0); CREATININE - SERUM 2.2 mg/dL (0.6-1.3)
[2020-11-12 10:19] VITALS: BP 171/71
--- NOTE | 2020-11-12 12:09 | NUR ---
LAYING ON SIDE IN HER BED. C/O INCREASED PAIN TO BACK. PAIN MEDS GIVEN ORDERED AND REQUESTED. STILL C/O ITCHING TO BACK. SKIN DRY. LOTION APPLIED. CALL LIGHT IN REACH
[2020-11-12 19:00] VITALS: BP 167/86
--- NOTE | 2020-11-12 19:10 | NUR ---
BEDSIDE REPORT COMPLETE. RECEIVED PT LYING IN BED ON LEFT SIDE. DENIES ANY NEEDS OR PAIN. ALERT AND ORIENTED X4. BLE +2 EDEMA NOTED. BUTTOCKS RED AND BLANCHABLE. PT TURNS SELF Q2H. BSC AT BEDSIDE. CALL LIGHT AND WATER WITHIN REACH. FALL PRECAUTIONS IN PLACE. CPOC
--- NOTE | 2020-11-13 01:09 | NUR ---
PT LYING IN BED ON RIGHT SIDE EYES CLOSED RESTING. RR EVEN AND UNLABORED. CONTINUES ON O2/3L VIA NC. CALL LIGHT WITHIN REACH
--- NOTE | 2020-11-13 04:13 | NUR ---
PT LYING IN BED ON LEFT SIDE EYES CLOSED RESTING. NO DISTRESS NOTED.
[2020-11-13 11:46] VITALS: BP 155/79
--- NOTE | 2020-11-13 16:25 | NUR ---
LAYING ON SIDE IN BED. STILL C/O BACK PAIN. PAIN MEDS GIVEN ORDERED. IS INCONT OF BLADDER OFTEN.
[2020-11-13 19:00] VITALS: BP 128/50
--- NOTE | 2020-11-13 21:56 | NUR ---
BEDSIDE REPORT COMPLETED. PT LYING IN BED AWAKE. ALERT AND ORIENTED X4. DENIES ANY NEEDS OR PAIN. NO DISTRESS NOTED. CONTINUES ON O2/3L VIA NC. BLE +1 EDEMA NOTED WITH THICK DEEP WRINKLED AND DRY. LOTION APPLIED. BUTTOCKS REDDENED BUT BLANCHABLE. HEALED WOUND. CALMOSEPTINE APPLIED. CALL LIGHT AND WATER WITHIN REACH. FALL PRECAUTIONS IN PLACE. BSC AT BEDSIDE. CPOC
--- NOTE | 2020-11-14 00:05 | NUR ---
PT CALLED WANTING BS CHECKED. FSBS 84. PT AGREED TO EATING SNACK. PROVIDED PEANUT BUTTER AND ILAN CRACKERS WITH 4 OZ OJ. PT HANDS ARE LITTLE SHAKY BUT NO OTHER SYMPTOMS NOTED. WILL CONTINUE TO MONITOR
--- NOTE | 2020-11-14 02:40 | NUR ---
PT CALLED REQUESTING BS CHECK, PT WASN'T SURE IF IT TOO HIGH OR LOW. FSBS 121. PT HAS BEEN WORRIED ABOUT BS MORE THAN USUAL TONIGHT. PT IS ASYMPTOMATIC. SNACK OFFERED PT DOES NOT WANT ANYTHING. NO OTHER NEEDS VOICED. CALL LIGHT WITHIN REACH
--- NOTE | 2020-11-14 06:07 | NUR ---
ASSISTED PT BSC, PT VOIDED. FSBS 73 PROVIDED 8OZ JUICE AND JELLO. PT IS ASYMPTOMATIC. PT IS SITTING UP ON SIDE OF BED. REINALDO ALARM ON. BSC EMPTIED. CALL LIGHT WITHIN REACH.
[2020-11-14 08:00] VITALS: BP 146/80
[2020-11-14] MEDS ORDERED: ULTRAM50 MG PO (08:52)
[2020-11-14] MEDS ORDERED: HUMULIN N100 U/ML SC (08:52)
--- NOTE | 2020-11-14 10:48 | NUR ---
SITTING IN WC IN ROOM. OXYGEN 3L IN USE. STILL C/O BACK PAIN. LOW BACK XRAY TAKEN THIS AM. TAKES PAIN MEDS OFTEN. INCONT AT TIMES. CALL LIGHT IN REACH
--- NOTE | 2020-11-14 12:29 | NUR ---
NUTRITION REASSESSMENT/FOLLOW UP: COMMENTS: Met with patient this AM. She stated her appetite has been fair lately. She denied any new issues with nausea, vomiting, diarrhea, or chewing/swallowing her food. Patient stated she has not had a recent bowel movement. Patient ate 100% for breakfast this AM. DIET: Diabetic Diet PO INTAKE: 100% x 1 meal; 100% x 1 snack WEIGHT: 235 lbs on 11/02 (no new weight recorded) BM: x 1 on 11/05 (no BM in 9 days) SIG MEDS: Colace, Humulin, Probiotic, Lasix, Protonix, Synthroid, Zocor, Humalog SIG LABS: On 11/12- Na-133(L), BUN-53(H), Cr-2.2(H) POC Glucose: 73, 121, 119, 84, 168, 351, 192 ESTIMATED ENERGY NEEDS (Based on patient's adjusted body weight): 1742-0281 kcal/day (25-30 kcal/kg Adj) 95-110 g protein (1.2-1.4 g/kg) 8071-2378 cc fluid (1 cc/kcal) or Per MD NUTRITION RECOMMENDATIONS: Continue Diabetic Diet as tolerated RD to follow up with 5 days
--- NOTE | 2020-11-14 19:34 | NUR ---
AWAKE AND ALERT. RESTING IN WHEELCHAIR IN ROOM. RESPIRAITONS UNLABORED ON O2/3L PER NASAL CANNULA. NO ACUTE DISTRESS NOTED. CALL LIGHT IN REACH.
[2020-11-14 19:56] VITALS: BP 149/81
--- NOTE | 2020-11-14 21:57 | NUR ---
PATIENT C/O BLOOD SUGAR FEELING LOW ACCUCHECK 133. HS SNACK GIVEN. SKIN WARM AND DRY. RESPIRATIONS UNLABORED. CALL LIGHT IN REACH.
--- NOTE | 2020-11-15 05:18 | NUR ---
QUIET HOURS. NO ACUTE CHANGES IN CONDITION THIS SHIFT. RESTING IN BED WITH NO DISTRESS NOTED.
--- NOTE | 2020-11-15 06:01 | NUR ---
AM INSULIN HELD DUE TO BLOOD SUGAR 63. AWAKE AND ALERT. SKIN WARM AND DRY. ORANGE JUICE AND CRACKERS GIVEN.
[2020-11-15 07:45] VITALS: BP 93/48
--- NOTE | 2020-11-15 08:00 | NUR ---
SHIFT ASSMT COMPLETED.PLAN TO DC HOME TODAY.
--- NOTE | 2020-11-15 10:26 | NUR ---
PATIENT DISCHARGING HOME TODAY. [facility] WILL RESUME THERAPY AT HOME. NO NEW DME NEEDED AT THIS TIME. DR. LUDWIG/JADA 11/18/20 @ 9:00, DR. SHEARER/ DOMINGA 12/27/20 @ 10:45. EMILIANA SIGNED, IMM SERVED AND EXPLAINED, ONE GIVEN TO PATIENT AND ONE FILED IN CHART. NO COMPARE DATA REVIEWED PATIENT IS ESTABLISHED WITH [facility]. DISCHARGE INSTRUCTIONS FAXED TO PCP, [facility] , [facility] , AUTH. # [id number] AND REVIEWED WITH PATIENT.
--- NOTE | 2020-11-15 11:45 | NUR ---
REVIEWED DC MEDS,APPTS AND RX'S;HOME HEALTH TO SEE AND SCHEDULE THERAPIES.[facility] HERE TO TRANSPORT.DC;Rao IN STABLE CONDITION.
== END 2020-11-15 12:20 | disposition home health service (06) | DRG 192 ==
LOC: D.REHAB 17:25
PROVIDERS: ADMIT Emergency Medicine; ATTEND Emergency Medicine
DX: J44.1 Chronic obstructive pulmonary disease with (acute) exacerbation (principal); S82.891D Other fracture of right lower leg, subsequent encounter for closed fracture with routine healing; X58.XXXD Exposure to other specified factors, subsequent encounter; D64.9 Anemia, unspecified; N18.9 Chronic kidney disease, unspecified; R26.2 Difficulty in walking, not elsewhere classified; E11.9 Type 2 diabetes mellitus without complications; E87.8 Other disorders of electrolyte and fluid balance, not elsewhere classified; R53.83 Other fatigue; E78.5 Hyperlipidemia, unspecified; I50.9 Heart failure, unspecified